=== PATIENT | female | born 2000 ===

== ENCOUNTER 2019-10-23 18:04 | Emergency (ER) | payer OTHER, SELFPAY ==
--- NOTE | 2019-10-23 18:11 | ED.GENADULT ---
HPI - General Adult General Chief complaint: Dental/Oral Stated complaint: lumps on tongue Time Seen by Provider: 10/23/19 18:21 Source: patient and RN notes reviewed Mode of arrival: ambulatory Limitations: no limitations History of Present Illness HPI narrative: This patient started noticing approximately 30 minutes ago that she had lumps on the back of her tongue. They are not painful. She not have any difficulty talking or swallowing. She is had no wheezing. She has not had any ear pain, no nasal drainage, no sore throat, no fever, no cough. There is been no nausea, no vomiting, no diarrhea. She has had no hematuria, no dysuria, no pyuria. She has had no rashes. She has not changed anything that she eats in her diet. She has not changed any agents that she puts on her skin for cleansing or bathing purposes. Related Data Allergies Allergy/AdvReac Type Severity Reaction Status Date / Time No Known Allergies Allergy Verified 10/23/19 18:22 Review of Systems Review of Systems: Narrative: CONSTITUTIONAL: Denies fever, chills, or sweats. Noncontributory except as pertains to the past medical history and history of present illness. EYES: Denies visual changes, redness, or discharge. ENT: Denies rhinorrhea, congestion, sore throat, or otalgia. CARDIOVASCULAR: Denies chest pain, palpitations, or edema. RESPIRATORY: Denies cough or dyspnea. GASTROINTESTINAL: Denies abdominal pain, nausea, vomiting, or diarrhea. GENITOURINARY: Denies dysuria or hematuria. SKIN: Denies rash or itching. MUSCULOSKELETAL: Denies back pain, joint pain, or myalgia. NEUROLOGIC: Denies headache, numbness, or weakness. PSYCHIATRIC: Denies anxiety or depression. PMFSH Comments At time of signature, I have reviewed and agree with nursing past medical, surgical, social, and family history.Please see nursing chart for further information. There is no relevant family history pertinent to the presenting complaint. Exam Narrative: Exam Narrative: GENERAL: Well-appearing, well-nourished, and in no acute distress. HEAD: Normocephalic, atraumatic. EYES: PERRLA and EOMI. EARS: TM's clear bilaterally and the canals are clear. NOSE: Nares clear, no rhinorrhea or epistaxis. THROAT:Mucous membranes moist.Oropharynx normal without erythema or exudates. The patient has enlarged papillae on the posterior aspect of the tongue. The tongue is not swollen. The uvula is not swollen or erythematous. The patient's throat appears normal. There are no lesions under the tongue. NECK: Supple. No adenopathy of the neck, supraclavicular, axillary, or inguinal areas. RESPIRATORY: No respiratory distress. Airway patent. Respirations non-labored. Clear to auscultation. No wheezes, no rales, no retractions, no use accessory muscle respirations. Patient's not cyanotic and not dyspneic. Pulse ox on room air is 100% and current temperature is 36.8 ?C. HEART: Regular rate and rhythm. No murmur heard. Normal peripheral pulses. ABDOMEN: Soft, nontender, nondistended, normal active bowel sounds.No masses. No rebound or guarding, No organomegaly. No CVA pain. No pain McBurney's point. Patient is a negative Meyers sign negative Rovsing sign. There are no pulsatile masses or audible bruits. EXTREMITIES: No clubbing/cyanosis/ edema. Normal strength & range of motion. SKIN: Warm, dry.Normal color. No rash or skin lesions. Patient well-nourished well-hydrated has moist mucous membranes and no tenting of the skin. NEURO: Alert and oriented. CN 2-12 grossly intact. No focal deficits. PSYCH: Normal mood and affect. Course Vital Signs Vital signs: Afebrile and the other vital signs are normal. Medical Decision Making MDM Narrative Medical decision making narrative: Enlarged papillae of the tongue. Discharge Plan Discharge Clinical Impression: Allergy Qualifiers: Encounter type: initial encounter Qualified Code(s): T78.40XA - Allergy, unspecified, initial encounter Patient Di
[2019-10-23 18:19] VITALS: BP 102/60; PULSE 71; RESP 14; TEMP 36.8; O2SAT 100
== END 2019-10-23 18:31 | disposition home or self-care (01) ==
PROVIDERS: Emergency Provider Family Medicine
DX: K14.9 Disease of tongue, unspecified (principal); T78.40XA Allergy, unspecified, initial encounter
CPT/HCPCS: 99213; G0463

== ENCOUNTER 2020-07-21 15:30 | Emergency (ER) | payer OTHER, SELFPAY ==
[2020-07-21 15:40] VITALS: BP 96/66; PULSE 84; RESP 18; TEMP 36.9; O2SAT 99
--- NOTE | 2020-07-21 15:43 | ED.ANIMALBIT ---
HPI - Animal Bite General Chief Complaint: Animal Bite Stated Complaint: cat bit on left middle finger Time Seen by Provider: 07/21/20 15:43 Source: patient and RN notes reviewed History of Present Illness HPI narrative: Patient is a 20-year-old female who presents the urgent care with complaints of a cat bite to the left middle finger. Patient states that she was trying to catch a stray cat and it bit her. Patient states that the cat was not foaming at the mouth and did appear to be well groomed with the exception of having no tags or collar. The cat was unable to be caught by bystanders or animal control. Patient is up-to-date on her tetanus. No other acute complaints. No acute distress noted. Patient aware of the plan of care. Some parts of this dictation were generated by voice recognition software and may contain typographical and/or grammatical inaccuracies. Related Data Allergies Allergy/AdvReac Type Severity Reaction Status Date / Time No Known Allergies Allergy Verified 10/23/19 18:22 Review of Systems Review of Systems: Narrative: CONSTITUTIONAL: Denies fever, chills, or sweats. EYES: Denies visual changes, redness, or discharge. ENT: Denies rhinorrhea, congestion, sore throat, or otalgia. CARDIOVASCULAR: Denies chest pain, palpitations, or edema. RESPIRATORY: Denies cough or dyspnea. GASTROINTESTINAL: Denies abdominal pain, nausea, vomiting, or diarrhea. GENITOURINARY: Denies dysuria or hematuria. SKIN: Reports of a cat bite to the left middle finger MUSCULOSKELETAL: Denies back pain, joint pain, or myalgia. NEUROLOGIC: Denies headache, numbness, or weakness. All other systems reviewed are negative, except as documented in HPI. [facility] Social History Social History Gender identity (if verbalized by the patient): Female Comments At the time of my signature, I reviewed and agree with the nursing past medical, surgical, social, and family history. There is no relevant family history pertinent to the patient complaint. Exam Narrative: Exam Narrative: GENERAL: This is a well-nourished, well-developed patient, in no apparent distress. HEAD: normocephalic, atraumatic. EYES: PERRL. Sclera clear/white. Vision is grossly intact. EARS: External ears normal NOSE: External nose normal with no obvious nasal discharge, nares without redness, no rhinorrhea. THROAT: Mucous membranes moist SKIN: 1 x 1 cm L-shaped cat bite to the dorsal aspect of the left middle finger. Warm, intact with no suspicious lesions or rash, good texture and turgor. NEURO: awake, alert, and oriented to person, place and time. There were no obvious focal neurologic abnormalities. EXTREMITIES: No clubbing, cyanosis, or edema. Course Vital Signs Vital signs: Vital Signs Temperature 98.5 F 07/21/20 15:40 Pulse Rate 84 07/21/20 15:40 Respiratory Rate 18 07/21/20 15:40 Blood Pressure 96/66 L 07/21/20 15:40 Pulse Oximetry 99 07/21/20 15:40 Temperature 98.5 F 07/21/20 15:51 Pulse Rate 84 07/21/20 15:51 Respiratory Rate 18 07/21/20 15:51 Blood Pressure 96/66 L 07/21/20 15:51 Pulse Oximetry 99 07/21/20 15:51 Reviewed MDM - Animal Bite MDM Narrative Medical decision making narrative: Advised the patient to follow-up with [facility] department or animal control regarding need for rabies vaccinations. Complete oral antibiotic regimen as prescribed. Make sure to eat and drink with the medication. Clean the wound with plain Dial soap and water and use Neosporin and a bandage to cover if necessary or at risk of being soiled. If you develop any increase in pain associated with swelling, redness, drainage from the area?go to the emergency room or follow-up with your PCP [facility]. Follow-up with your PCP within 2 to 5 days or for worsening symptoms or failure to improve. Differential Diagnosis Differential diagnosis: Likely bite by animal, cat bite, dog bite and rabies contact Critical Care Time Critical Care [facility]
[2020-07-21 15:51] VITALS: BP 96/66; PULSE 84; RESP 18; TEMP 36.9; O2SAT 99
== END 2020-07-21 16:01 | disposition home or self-care (01) ==
PROVIDERS: Emergency Provider Nurse Practitioner Family
DX: S61.253A Open bite of left middle finger without damage to nail, initial encounter (principal); W55.01XA Bitten by cat, initial encounter
CPT/HCPCS: 99213; G0463

== ENCOUNTER 2025-04-06 11:21 | Emergency (ER) | payer OTHER, SELFPAY ==
--- OUTSIDE RECORDS SUMMARY | 2025-04-06 11:23 | XMS_ITS | Referral Summary ---
Author Organization [facility] Address [address] [place] [address] Care Team Providers Care Evp Managing Director Name Role Phone Shasta Randle NP Primary Care Provider [phone] Allergies No known active allergies Medications emtricitabine-tenof ovir disoproxil fumerate (TRUVADA) 200-300 mg per tablet Take 1 tablet by mouth daily 30 tablet 2 Active dolutegravir (TIVICAY) 50 mg tabletIndications:P revention of HIV Infection after Exposure Take 1 tablet (50 mg total) by mouth daily 30 tablet 2 Active ondansetron ODT (ZOFRAN-ODT) 4 mg disintegrating tablet Take 1 tablet (4 mg total) by mouth every 8 (eight) hours as needed for nausea or vomiting 20 tablet 3 Active Active Problems No known active problems Social History Tobacco Use Types Packs/Day Years Used Date Smoking Tobacco: Never Personal Safety Answer Date Recorded Getting School Help Needed Not on file 10/15 Comments No Sex and Gender Information Value Date Recorded Sex Assigned at Not on file Legal Sex Female 8:32 PM JOURNALIST Gender Identity Not on file Sexual Orientation Not on file 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 on file Not on file Not on file Last Filed Vital Signs Vital Sign Reading Time Taken Comments Blood Pressure 91/63 09/22/2022 6:44 AM JOURNALIST Pulse 81 09/22/2022 6:44 AM JOURNALIST Temperature 37.6 C (99.6 F) 09/22/2022 1:45 AM JOURNALIST Respiratory Rate 18 09/22/2022 6:44 AM JOURNALIST Oxygen Saturation 97% 09/22/2022 6:44 AM JOURNALIST Inhaled Oxygen Concentration - - Weight 59 kg (130 lb) 09/22/2022 1:45 AM JOURNALIST Height 161.3 cm (5' 3.5) 06/23/2022 10:47 PM CD T Body Mass Index 22.67 06/23/2022 10:47 PM CDT Plan of Treatment Not on file Procedures Procedure Name Priority Date/Time Associated Diagnosis Comments HEPATITIS PANEL, ACUTE STAT 10/14/2021 2:52 PM JOURNALIST from Last 3 Months or Most Recently Relevant to Health Maintenance Results * Hepatitis panel, acute (10/14/2021 2:52 PM JOURNALIST) Hep A IgM Nonreactive Nonreactive [facility] ([place]) Comment: Interpretive Data: If Hep A IgM Ab is reported as Equivocal, a new sample should be drawn in two weeks for testing. Current interpretive data was last revised on 19. Testing performed by: [address] [id number] Hep B core IgM Nonreactive Nonreactive [facility] ([place]) Comment: Interpretive Data If HepB Core IgM Ab is reported as Equivocal, a new sample should be drawn in two weeks for testing. Current interpretive data was last revised on 19. Testing performed by: [address] [id number] Hep C Ab Nonreactive Nonreactive [facility] ([place]) Comment: Interpretive Data Nonreactive: Antibodies to HCV not detected. Does NOT exclude the possibility of recent exposure to HCV. Equivocal: Equivocal for HCV antibodies. Supplemental molecular testing will be automatically performed to determine infection status in accordance with current CDC screening recommendations. Reactive: Positive for HCV antibodies. This may represent current or past HCV infection. Supplemental molecular testing will be automatically performed to determine current infection status in accordance with current CDC screening recommendations. Interpretive data was last revised on 2019. Testing performed by: [address] [id number] HepBsAg Nonreactive Nonreactive [facility] ([place]) Comment:Testing performed by : [address] [address] Blood 10/14/2021 2:52 PM JOURNALIST 10/15/2021 9:30 AM JOURNALIST Madina Degroot NP LAB MICROBIOLOGY - GENERAL ORDERABLES Final Result [facility] ([place]) [facility] Department [place] [address] from Last 3 Months or Most Recently Relevant to Health Maintenance Insurance Care Teams Evp Managing Director Relationship Specialty Start Date End Date Shasta Randle NP [facility] - General 07/29/20
--- OUTSIDE RECORDS SUMMARY | 2025-04-06 11:23 | XMS_ITS | Clinical Summary ---
Author Organization [facility] Address [address] [place] [id number] Care Team Providers Care Silvering Applicator Name Role Phone Ananya Saleh MD Primary Care Provider Unavail able Social History Tobacco Use Types Packs/Day Years Used Date Smoking Tobacco: Never Assessed Comments Unknown Sex and Gender Information Value Date Recorded Sex Assigned at Not on file Legal Sex Female 7:31 PM CDT Gender Identity Not on file Sexual Orientation Not on file Plan of Treatment Health Maintenance Due Date Last Done Comments Cervical Cancer Screening Pa p Smear (Age 21 to 29) Every 3 Years 1998 Cervical Cancer Screening 1998 Annual Physical 2001 HPV Vaccines (1 - 3-dose series) 2013 Hepatitis C 2016 DTaP, Tdap and Td Vaccines ( 1 - Tdap) 2017 Hepatitis B Vaccines (1 of 3 - 19+ 3-dose series) 2017 COVID-19 Vaccine ( - 2023-2 5 season) 2024 Meningococcal B Vaccine Aged Out No l onger eligible based on patient's age to complete this topic Meningococcal Vaccine Aged Out No jessica chelita eligible based on patient's age to complete this topic Pneumococcal Vaccine: Pediat rics (0 to 5 Years) and At-Risk Patients (6 to 49 Years) Aged Out No longer eligible b ased on patient's age to complete this topic RSV Immunizations Under 20 Months Aged Out No longer eligible based on patient's age to complete this topic Care Teams Silvering Applicator Relationship Specialty Start Date End Date Ananya Saleh MD PCP - General 08/20/13
--- OUTSIDE RECORDS SUMMARY | 2025-04-06 11:23 | XMS_ITS | Data Portability ---
Author Organization [place] [facility] Address [address] [place] [address] Care Team Providers Care Mechanical Supervisor Name Role Phone NAIMA LANDRY Referring Provider Assessment Encounter Date Assessment Date Assessment LastModified by Organization Details LastModified Time 10/26/2024 10/26/2024 ASSESSMENT: 1. De Quervain's tenosynovitis, right wrist. PLAN: At this point, we will hold off on the injection until one of her off days, as she has patients to see today. She has already been prescribed meloxicam. We will show her the removable thumb spica braces available in the office. If she prefers, she can purchase one on [employer] or we can dispense her one from our office today. She will call to make an appointment for the injection on a Tuesday, as she is usually off on Fridays but has bigger procedures today. [email or web address] Not available 11/04/2024 17:13:56 11/09/2024 11/09/2024 ASSESSMENT: 1. De Quervain's tenosynovitis, right wrist PLAN: We will proceed with the injection for de Quervain's tenosynovitis today. The patient will continue using anti-inflammator ies and the brace as needed. A follow-up appointment is scheduled in approximately eight weeks to assess her progress. If symptoms persist, further management will be considered. [email or web address] Not available 11/09/2024 12:15:44 Plan of Treatment Reminders Order Date Submit Date Provider Last Modified By Organization Details Last Modified Time Details Appointments None record ed. Lab None record ed. Referral None record ed. Procedures None record ed. Surgeries None record ed. Imaging XR, wrist, 3 or more view 025 10/26/19 25 [email or web address] [facility], [address], [place], [address], 10:12:12 Medication Orders None record ed. Patient TargetsNo targets recorded. Patient Instructions Encounter Date Encounter Id Patient Instructions Last Modified By Organization Details Last Modified Time 11/09/2024 [id number] Injection Counseling: We discussed various methods of treatment for this diagnosis, including both non-surgical and surgical treatment options. The procedure was discussed in detail, including rationale for proceeding with the procedure, specifics of the technical aspects of the procedure, and the expected post procedure course including the possible need for activity modification, therapy, and duration of expected recovery. Risks to the injection include: pain, numbing, scar, infection, loss of motion, nerve or vascular injury, stiffness, skin discoloration, fat atrophy, or allergic reaction to medicine. The patient voiced understanding of the procedure and risks, and the decision for injection was made today. Not available 11/09/2024 12:31:15 Reason for Referral None Reported. Procedures Surgical History Date Name Laterality Status Provider Name and Address Organization Details Recorded Time 11/09/2024 .[id number] completed SHAUN RILEY, [address], [address] 11/11/2024 22:46:05 01/10/2023 Date of Last Pap Smear completed Not Available [employer] 10/25/2024 23:47:52 Imaging Results None recorded. Procedure Notes None recorded. Medical Equipment None Reported. Allergies No known drug allergies Medications Name Sig Start Date Stop Date Status Note LastModified by Organization Details LastModified Time meloxicam active Helps Not Available Not Janice ilable Not Available Vitals Date Recorded Body height Body mass index (BMI) Body weight Provider Name and Address Organization Details Last Updated DateTime 10/26/2024 162.56 cm 22.3 kg/m2 51229.01 g Ninoska yAers [place] [facility] 10/26/2024 09:58:23 Social History Question Answer Notes LastModified by Organizat ion Details LastModified Time Tobacco Smoking Status Not Available [facility] 11/08/2024 13:03:40 Which Of Your Hands Is Dominant? Right Information n ot available 10/26/2024 Employment Status Casework Manager Informa tion not available 10/26/2024 What Was The Date Of Your Most Recent Tobacco Screening? 11/08/2024 [email or web address] Information not available 11/08/2024 What Is Your Relationship Status? Information not available 10/26/2024 Sex: Unknown Functional Status Question Answer Note LastModified by Organizat ion Details LastModified Time Do you use any illicit or recreational drugs? No [email or web address] Information not available 11/08/2024 Do you or have you ever used any other forms of tobacco or nicotine? No [email or web address] Information not available 11/08/2024 What is your level of alcohol consumption? None [email or web address] Information not available 11/08/2024 Are you currently employed? 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 Occasional Information not available 10/26/2024 Mental Status None recorded. Family History Relationship Description Onset Age of this Age Resolved Age Notes LastModified by Organization Details LastModified Time Father No current problems or disability Not available 10/26 09:58:38 Mother No current problems or disability Not available 10/26 09:58:39 Medical History Condition Response Seizure Disorder N Gout N Thyroid Disease N Chronic Headache N Kidney Stones N MRSA N Hernia N Emphysema N Rosacea N Atrial Fib N Lung Disease N Depression N COPD N Pacemaker N Vertebral Compression Fractures N Abdominal problems N TIA N Anesthesia Complications N Muscle Disease N Raynaud's Syndrome N Congestive Heart Failure N Neurological Disorder N Parkinson's N Deep Vein Thrombosis N Obstructive Sleep Apnea N Alcoholism N Anxiety Disorder N Restless Leg Syndrome N Arthritis N Chronic Kidney Failure N Blood Clot N Cancer N Stroke N Crohn's Disease N Hypercholesterolemia N GERD N High Cholesterol N Liver Disease N Rheumatoid Arthritis N Headaches N Fibromyalgia N Irritable Bowel Syndrome N Autoimmune Disease N Kidney Disease N Heart Problems N Scoliosis N Colitis N Heart Attack/AK N Migraines N Osteoporosis/Osteopenia N Anemia N Multiple Sclerosis N Brain Injury N Ulcers N Wound Healing Issues N Diabetes N Addiction N Cataracts N Bleeding Disorder N Tuberculosis N Bowel problems N AIDS/HIV N BPH N Diverticulitis N Asthma N Lupus N Ankylosing Spondylitis N Peripheral Vascular Disease N Psoriasis N Epilepsy/Seizures N Mitral Valve Prolapse N Hepatitis N Neuropathy N Coronary artery disease N Heart Disease N Bronchitis N Pulmonary Embolism N Supraventricular Tachycardia N Hypertension N Gynecological History Statement/Question Response Date of Last Pap Smear 01/10/2023 Obstetrics History GPAL:G 0 P 0 0 0 0 Past Encounters Encounter ID Performer Location Encounter Start Date Encounter Closed Date Diagnosis/Indication Diagnosis SNOMED-CT Code Diagnosis ICD10 Code Diagnosis Note [id number] SHAUN RILEY DO [facility] [address] [facility] [place] [id number] 10/26/2024 09:14:02 10/26/2024 10:12:12 Pain of right wrist 5334257073 28811 M25.531 Tenosynovi tis of right radial styloid 4767386172 2706789 M65.4 [id number] SHAUN RILEY DO [facility] [address] [facility] [place] [address] 11/09/2024 11:29:05 11/09/2024 12:25:19 Tenosynovitis of right radial styloid 6842431730 5588405 M65.4 Health Concerns Section Related Observation LastModified by Organization Detai ls LastModified Time None Recorded Concern Status LastModified by Organization Details LastModified Time None Recorded Advance Directives Directive None Recorded Payers Insurance Date Sequence Insurance Name Policy Number Policy Lyle Covered Member ID Lyle Member ID Guarantor Name 11/27/2024 1 DAVID [id number] Yuriy Vences [id number] 1 Yuriy Vences Notes Date Note Type Note Provider Name and Address Organization Details Recorded Time 10/26/2024 text/html Wrist/HandReport ed by PatientHPIFor associated symptoms, patient reportsweaknessandca tching/locking. For hand dominance, patient reportsright. For location, patient reportsright. For quality, patient reportsaching,throbb ing,sharp, anddull(shooting, tenderness). For severity, patient reportspain level 4/10andworst pain 6/10. For duration, patient reports2 months. For timing, patient reportsacute. For context, patient reportscannot identify,overuse, andrepetitive motion. For alleviating factors, patient reportsrestandnsaids . For aggravating factors, patient reportscarrying,aviation medicine specialist ping,grasping,squeez ing, androm. For previous surgery, patient reportsnone. For prior imaging, patient reportsnone. For previous injections, patient reportsnone. For previous pt, patient reportsnone. For work related, patient reportsno. For working, patient reportsregular duty.ROS as noted in the HPI Yuriy Vences is a 24-year-old female who presents as a new patient for right wrist pain. 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 There is no specific mechanism of injury. She describes her pain as ranging from 4 out of 10 to 6 out of 10, with associated limited range of motion and stiffness. She has been taking meloxicam as needed. Dr. Camacho advised her not to wear a brace until she was evaluated. The pain affects her daily activities, including her work and caring for her [id number] child. She previously experienced a different type of pain in both wrists two years ago, which resolved after a period of rest. Currently, the pain is localized to her right wrist and is different from her previous symptoms. She has not had any injections for this condition. SHAUN RILEY, DO [address] [place] [address], [place], [address], [place] [facility] 11/04/2024 17:15:54 11/09/2024 text/html Wrist/HandReport ed by PatientHPIFor hand dominance, patient reportsright. For location, patient reportsright. For quality, patient reportsaching,throbb ing,sharp,dull, andimproving(shootin g, tenderness). For severity, patient reportspain level 3/10. For duration, patient reports2 months. For timing, patient reportsacute. For context, patient reportscannot identify,overuse, andrepetitive motion. For alleviating factors, patient reportsrestandnsaids . For aggravating factors, patient reportscarrying,aviation medicine specialist ping,grasping,squeez ing, androm. For previous surgery, patient reportsnone. For prior imaging, patient reportsx ray. For previous injections, patient reportsnone. For previous pt, patient reportsnone. For work related, patient reportsno. For working, patient reportsregular duty.ROS as noted in the HPI Yuriy Vences is a 24-year-old female who presents for an established visit. She is right arm dominant and works as a dentist. She has been experiencing de Quervain's tenosynovitis symptoms in her right wrist for the past two to three months. She reports that she has not needed meloxicam anymore and did not get the brace initially. However, she eventually obtained the brace, which has significantly helped her condition. Her range of motion has improved, and her pain level is currently 3 out of 10. She still experiences slight pain, which is persistent but manageable. She is considering an injection to alleviate the inflammation and pain further. SHAUN RILEY, DO [address] [facility], [place], [address], [place] [facility] 11/11/2024 22:47:49 OBGyn Episode No OBEpisode recorded.
--- OUTSIDE RECORDS SUMMARY | 2025-04-06 11:23 | XMS_ITS | Patient Health Record ---
Author Organization [facility] Address [address] [facility] [place] [address] Care Team Providers Care Geothermal Production Manager Name Role Phone TEJ FLANNERY Unavailable [phone] Reason For Referral No Information Medications Medication SIG (Take, Route, Frequency, Duration) Notes Start Date End Date Status Cephalexin 500 MG 1 capsule Orally Twi ce a day for 10 days 05/30/2024 Active Acetaminophen-Codeine 300-30 MG 1 tablet as needed Orally every 6 hrs for 5 days 06/06/2024 Active Encounters Encounter Location Date Provider Diagnosis [address] [address] 05/30/2024 TEJ FLANNERY Paronychia of great toe of right foot L03.031 ; Ingrown right greater toenail L60.0 and Pain of right great toe M79.[address] [address] 06/06/2024 TEJ FLANNERY Ingrowing nail L60.0 ; Paronychia of great toe of right foot L03.031 and Pain in right foot M79.[address] [address] 06/14/2024 TEJ FLANNERY Ingrown nail L60.0 a nd Pain of right great toe M79.[address] [address] 06/20/2024 TEJ FLANNERY Ingrown nail L60.0 a nd Pain of right great toe M79.[address] [address] 05/30/2024 TEJ FLANNERY [address] [address] 06/06/2024 TEJ FLANNERY Assessments Encounter Date Diagnosis (ICD Code) Assessment Notes Treatment Notes Treatment Clinical Notes Section Notes 05/30/2024 Paronychia of great toe of right foot (ICD-10 - L03.031) 06/06/2024 Ingrowing nail (ICD-10 - L60.0) 06/14/2024 Ingrown nail (ICD-10 - L60.0) 06/20/2024 Ingrown nail (ICD-10 - L60.0) 06/20/2024 Pain of right great toe (ICD-10 - M79.674) 06/14/2024 Pain of right great toe (ICD-10 - M79.674) 06/06/2024 Paronychia of great toe of right foot (ICD-10 - L03.031) 05/30/2024 Ingrown right greater toenail (ICD-10 - L60.0) Today we discussed treatment options and procedure types to correct deformity and infection. Pt chooses to have a permanent matrixectomy and agrees to follow preoperative protocol. This includes Keflex [id number] and warm water with 1/2 cup of vinegar soak daily. Pt will reappoint in one week for procedure and agrees to call if any additional complications arise. Schedule right hallux B/L margin matrixectomy in one week. 06/06/2024 Pain in right foot (ICD-10 - M79.671) 05/30/2024 Pain of right great toe (ICD-10 - M79.674) Plan Of Treatment No Information Insurance Providers Payer Name Payer Address Payer Phone Subscriber Number Group Number Insured Name Patient Relationship to Insured Coverage Start Date Coverage End Date Brooklynn BARBER [address] [place] [phone] [id number] Yuriy Vences Self - patient is the insured
--- OUTSIDE RECORDS SUMMARY | 2025-04-06 11:23 | XMS_ITS | Clinical Summary ---
Author Organization [facility] Address [address] [place] [address] Care Team Providers Care Pecan Gatherer Name Role Phone Shasta Randle NP Primary Care Provider [phone] Allergies No known active allergies Medications emtricitabine-tenof [...] Active Active Problems No known active problems Surgical History Surgery Date Site/Laterality Comments NO PAST SURGERIES Medical History Medical History Date Comments Known health problems: none Family History Medical History Relation Name Comments No Known Problems Father No Known Problems Mother Relation Name Status Comments Father Mother Social History Tobacco Use Types Packs/Day Years Used Date Smoking Tobacco: Never Personal Safety Answer Date Recorded Getting School Help Needed Not on file 10/15 Comments No Sex and Gender Information Value Date Recorded Sex Assigned at Not on file Legal Sex Female 8:32 PM [employer] Gender Identity Not on file Sexual Orientation Not on file 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 on file Not on file Not on file Obstetrics History Last Filed Vital Signs Vital Sign Reading Time Taken Comments Blood Pressure 91/63 09/22/2022 6:44 AM [employer] Pulse 81 09/22/2022 6:44 AM [employer] Temperature 37.6 C (99.6 F) 09/22/2022 1:45 AM [employer] Respiratory Rate 18 09/22/2022 6:44 AM [employer] Oxygen Saturation 97% 09/22/2022 6:44 AM [employer] Inhaled Oxygen Concentration - - Weight 59 kg (130 lb) 09/22/2022 1:45 AM [employer] Height 161.3 cm (5' 3.5) 06/23/2022 10:47 PM CD T Body Mass Index 22.67 06/23/2022 10:47 PM CDT Plan of Treatment Health Maintenance Due Date Last Done Comments Cervical Cancer Screening 1998 Depression Screening 1998 Regular Well Visit/Exam 18-64 2016 DTaP/Tdap/Td Vaccine (4 - Td or Tdap) 01/20/2022 01/21/2012, 06/18/2008, 01/22/1999 Covid-19 Vaccine ( season) 2024 07/21/2021, 12/01/2020, 10/21/2020 Influenza Vaccine (#1) 2025 , 07/08/2020, 07/06/2014, Additional history exists Hepatitis B Screening Completed 04/30/1999 Varicella Vaccines Completed 06/18/2008, 10/12/1999 HPV Vaccines Completed 05/29/2019, 01/10, 11/15/2018 Hepatitis C Screening Completed 10/14/2021 Pneumococcal vaccine <65 Aged Out No longer eligible based on patient's age to complete this topic Procedures Procedure Name Priority Date/Time Associated Diagnosis Comments HEPATITIS PANEL, ACUTE STAT 10/14/2021 2:52 PM [employer] from Last 3 Months or Most Recently Relevant to Health Maintenance Results * Hepatitis panel, acute (10/14/2021 2:52 PM [employer]) Hep A IgM Nonreactive Nonreactive [facility] ([facility]) Comment: Interpretive Data: If Hep A IgM Ab is reported as Equivocal, a new sample should be drawn in two weeks for testing. Current interpretive data was last revised on 19. Testing performed by: [facility], [address] [place] [address]., [id number] Hep B core IgM Nonreactive Nonreactive C WILBER RUSHING (BARON) Comment: Interpretive Data If HepB Core IgM Ab is reported as Equivocal, a new sample should be drawn in two weeks for testing. Current interpretive data was last revised on 19. Testing performed by: [facility], [address] [place] [address]., [id number] Hep C Ab Nonreactive Nonreactive [facility] ([facility]) Comment: Interpretive Data Nonreactive: Antibodies to [...] last revised on 2019. Testing performed by: [facility], [address] [place] [address]., [id number] HepBsAg Nonreactive Nonreactive [facility]USH[facility] ([facility]) Comment:Testing performed by : [address] [id number] Blood 10/14/2021 2:52 PM [employer] 10/15/2021 9:30 AM [employer] Madina Degroot NP LAB MICROBIOLOGY - GENERAL ORDERABLES Final Result [facility] ([facility]) [address] [facility] [place] [address] from Last 3 Months or Most Recently Relevant to Health Maintenance Insurance [facility] [place] [address] Care Teams Pecan Gatherer Relationship Specialty Start Date End Date Shasta Randle NP PCP - General 07/29/20
--- OUTSIDE RECORDS SUMMARY | 2025-04-06 11:23 | XMS_ITS | Data Portability ---
Author Organization [facility] Gordon Address [address] [place] [address] Care Team Providers Care Nurse Navigator Name Role Phone DUDLEYBEVERLEYLORETOCHARITO Primary Care Provider [phone] Assessment No assessment recorded. Plan of Treatment Reminders Order Date Submit Date Provider Last Modified By Organization Details Last Modified Time Details Appointments None recorded. Lab None recorded. Referral None recorded. Procedures None recorded. Surgeries None recorded. Imaging US, obstetric, 2nd or 3rd trimester 2022 023 [email or web address] [address], [address], [place], [address], 3 11:17:02 US, obstetric, nuchal translucenc y 2022 023 DOROTHY [address], [address], [place], [address], 3 20:34:50 Medication Orders None recorded. Patient TargetsNo targets recorded. Patient InstructionsNo instructions recorded. Reason for Referral None Reported. Results Created Date Observation Date Name Description Value Unit Range Abnormal Flag Note LastModifiedBy Organization Detail LastModifiedTime 02/19/2002/18/2023 HEPAT ITIS B SURFA CE ANTIG EN hepatitis B surface antigen Non-re active non-re active This assay was perfo rmed using [facility] [employer] ratio n reage nts and test kits. Value s obtai lalitha with other assay metho ds or kits canno t be used inter muller eably . Not Available [facility] (Lab) [address], [place], [address], 02/19/2023 23:23:04 02/19/20 23 02/18/2023 HEPAT ITIS C ANTIB CARON SCREE N, REFLE X TO CONFI RMATI ON hepatitis C antibody Non-re active non-re active Antib odies to HCV Not Detec hannah, does not exclu de the possi bilit y of expos ure to HCV. Not Available [facility] (Lab) [address], [place], [address], 02/19/2023 23:23:04 02/19/20 23 02/18/2023 HIV 1/2 ANTIG EN/AN TIBOD Y, REFLE X CONFI RMATI ON HIV antigen/anti body Nonrea ctive nonrea ctive HIV-1 antig en and HIV-1 /HIV- 2 antib odies were not detec hannah. No labor atory evide nce of HIV infec tion. Not Available [facility] (Lab) [address], [place], [address], 02/19/2023 23:23:04 02/19/20 23 02/18/2023 TSH, REFLE X FREE T4 TSH 2.04 uIU/m L 0.30-5 .33 Not Available [facility] (Lab) [address] [place], [address], 02/19/2023 23:23:05 02/19/20 23 02/18/2023 RUBEL LA IGG ANTIB CARON, QUANT rubella antibodies, IgG Reacti ve reacti ve Not Available [facility] (Lab) [address], [place], [address], 02/19/2023 23:23:05 02/19/20 23 02/18/2023 RUBEL LA IGG ANTIB CARON, QUANT rubella antibodies, IgG quant 19.1 IU/mL >=10 Non-r eacti ve (Non- Immun e) <10 IU/mL React kelvin (Immu ne) > or = 10 IU/mL Not Available [facility] (Lab) [address], [place], [address], 02/19/2023 23:23:05 02/19/20 23 02/18/2023 CBC W/DIF F WBC 7.3 10'3/ uL 3.6-10 .2 Not Available [facility] (Lab) [address], [place], [address], 02/19/2023 23:23:06 02/19/20 23 02/18/2023 CBC W/DIF F RBC 4.28 10'6/ uL (based on docume nted legal sex) 4.10-5 .30 Not Available [facility] (Lab) [address], [place], [address], 02/19/2023 23:23:06 02/19/20 23 02/18/2023 CBC W/DIF F HGB 12.6 g/dL (based on docume nted legal sex) 11.9-1 5.8 Not Available [facility] (Lab) [address], [place], [address], 02/19/2023 23:23:06 02/19/20 23 02/18/2023 CBC W/DIF F HCT 38.5 % (based on docume nted legal sex) 37.4-4 8.3 Not Available [facility] (Lab) [address], [place], [address], 02/19/2023 23:23:06 02/19/20 23 02/18/2023 CBC W/DIF F MCV 90.0 fL 82.0-9 9.0 Not Available [facility] (Lab) [address] [place], [address], 02/19/2023 23:23:06 02/19/20 23 02/18/2023 CBC W/DIF F MCH 29.4 pg 27.0-3 3.0 Not Available [facility] (Lab) [address] [place], [address], 02/19/2023 23:23:06 02/19/20 23 02/18/2023 CBC W/DIF F MCHC 32.7 g/dL 32.0-3 6.0 Not Available [facility] (Lab) [address], [place], [address], 02/19/2023 23:23:06 02/19/20 23 02/18/2023 CBC W/DIF F RDW 15.4 % 11.0-1 5.0 high Not Available [facility] (Lab) [address], [place], [address], 02/19/2023 23:23:06 02/19/20 23 02/18/2023 CBC W/DIF F plt 195 10'3/ uL 150-45 0 Not Available [facility] (Lab) [address], [place], [address], 02/19/2023 23:23:06 02/19/20 23 02/18/2023 CBC W/DIF F MPV 11.8 fL 9.8-12 .7 Not Available [facility] (Lab) [address], [place], [address], 02/19/2023 23:23:06 02/19/20 23 02/18/2023 CBC W/DIF F NRBC's 0.0 % 0 Not Available [facility] (Lab) [address], [place], [address], 02/19/2023 23:23:06 02/19/20 23 02/18/2023 CBC W/DIF F absolute NRBCs 0.0 10'3/ uL 0 Not Available [facility] (Lab) [address], [place], [address], 02/19/2023 23:23:06 02/19/20 23 02/18/2023 CBC W/DIF F neutrophils 75.9 % 37.0-7 2.0 high Not Available [facility] (Lab) [address], [place], [address], 02/19/2023 23:23:06 02/19/20 23 02/18/2023 CBC W/DIF F lymphocytes 14.9 % 16.0-4 8.0 low Not Available [facility] (Lab) [address], [place], [address], 02/19/2023 23:23:06 02/19/20 23 02/18/2023 CBC W/DIF F monocytes 8.2 % 4.0-14 .0 Not Available [facility] (Lab) [address], [place], [address], 02/19/2023 23:23:06 02/19/20 23 02/18/2023 CBC W/DIF F eosinophils 0.4 % 0.0-9. 0 Not Available [facility] (Lab) [address], [place], [address], 02/19/2023 23:23:06 02/19/20 23 02/18/2023 CBC W/DIF F basophils 0.3 % 0.0-2. 0 Not Available [facility] (Lab) [address], [place], [address], 02/19/2023 23:23:06 02/19/20 23 02/18/2023 CBC W/DIF F immature granulocytes 0.3 % no define d refere nce range Not Available [facility] (Lab) [address], [place], [address], 02/19/2023 23:23:06 02/19/20 23 02/18/2023 CBC W/DIF F absolute neutrophils 5.6 10'3/ uL 1.1-6. 0 Not Available [facility] (Lab) [address], [place], [address], 02/19/2023 23:23:06 02/19/20 23 02/18/2023 CBC W/DIF F absolute lymphocytes 1.1 10'3/ uL 0.7-3. 4 Not Available [facility] (Lab) [address], [place], [address], 02/19/2023 23:23:06 02/19/20 23 02/18/2023 CBC W/DIF F absolute monocytes 0.6 10'3/ uL 0.3-1. 0 Not Available [facility] (Lab) [address], [place], [address], 02/19/2023 23:23:06 02/19/20 23 02/18/2023 CBC W/DIF F absolute eosinophils 0.0 10'3/ uL 0.0-0. 6 Not Available [facility] (Lab) [address], [place], [address], 02/19/2023 23:23:06 02/19/20 23 02/18/2023 CBC W/DIF F absolute basophils 0.0 10'3/ uL 0.0-0. 1 Not Available [facility] (Lab) [address], [place], [address], 02/19/2023 23:23:06 02/19/20 23 02/18/2023 CBC W/DIF F absolute immature granulocytes 0.0 10'3/ uL 0.00-0 .10 2022 3:26 AM: P indic ates parti al resul ts on a panel have been relea sed. Addit ional resul ts will follo w. 2022 3:26 AM: This resul t has been final verif ied. No addit ional or muller ed resul ts are expec hannah. Not Available [facility] (Lab) [address], [place], [address], 02/19/2023 23:23:06 02/19/20 23 02/18/2023 TYPE/ RH/SC REEN ABO/Rh type O NEG Not Available [facility] (Lab) [address], [place], [address], 02/19/2023 23:23:06 02/19/20 23 02/18/2023 TYPE/ RH/SC REEN antibody screen NEG Not Available [facility] (Lab) [address], [place], [address], 02/19/2023 23:23:06 02/19/20 23 02/18/2023 TYPE/ RH/SC REEN exp date 2022 23:59 Not Available [facility] (Lab) [address], [place], [address], 02/19/2023 23:23:06 02/19/20 23 02/18/2023 HEMOG LOBIN A1C hemoglobin A1C 5.0 % 0-5.6 The Ameri can Diabe padmini Assoc iatio n recom mends that a prima ry goal of thera py shoul d be a HBA1C of < 7% and that physi cians shoul d reeva luate the treat ment regim en in patie nts with HBA1C value s consi stent ly > 8%. <5.7% Radha l 5.7 - 6.4% Incre ased risk for diabe padmini >=6.5 % Diagn ostic of diabe padmini <7.0% Goal of thera py >8.0% Actio n sugge sted Not Available [facility] (Lab) [address], [place], [address], 02/19/2023 23:23:06 02/19/20 23 02/18/2023 RPR SCREE N/REF DARSHAN TITER /FTA RPR screen Nonrea ctive nonrea ctive Not Available [facility] (Lab) [address], [place], [address], 02/19/2023 23:23:07 02/19/20 23 02/18/2023 LEAD, BLOOD (ADUL T/PED IATRI C) lead, whole blood <1.0 mcg/d L <3.5 See Note 1 A blood lead refer ence value of <5 mcg/d L shoul d apply to only [facility] resid ents per [facility]. Bao sis was perfo rmed by Jemma Nowak ed Plasm a Mass Spect romet ry (ICPM S) Note 1 This test was devel oped and its bao tical perfo rmanc e mateo cteri stics have been deter mined by [facility]. It has not been clear ed or appro seema by the FDA. This assay has been valid ated pursu ant to the CLIA regul ation s and is used for clini melissa purpo ses. Ethni city: Not Hispa jassi or Latin o Perfo rming Organ izati on Infor matio n: Site ID: [id number] Name: [facility] Addre ss: [address] [place] [address] Direc tor: Jeanette hardwick M.D. Not Available [facility] (Lab) [address], [place], [address], 02/25/2023 10:37:47 01/29/20 23 01/28/2023 US, obste tric, follo w-up No observ ation record ed. [email or web address] [facility], [place], [address], 02/18/2023 15:28:40 02/19/20 23 02/18/2023 US, obste tric, nucha l trans lucen cy No observ ation record ed. [email or web address] [address], [place], [address], 02/18/2023 15:50:17 02/19/20 23 02/18/2023 US, obste tric, nucha l trans lucen cy No observ ation record ed. [address], [facility], [place], [address], 02/19/2023 20:33:52 04/15/20 23 04/15/2023 US, obste tric, 2nd or 3rd trime ster No observ ation record ed. [email or web address] [address], [place], [address], 04/15/2023 13:00:15 04/15/20 23 04/15/2023 US, obste tric, 2nd or 3rd trime ster No observ ation record ed. DOROTHY [address], [place], [address], 04/24/2023 12:02:21 04/15/20 23 04/15/2023 US, obste tric, 2nd or 3rd trime ster No observ ation record ed. DOROTHY [address], [place], [address], 04/30/2023 10:11:52 Result Notes None recorded. Problems Name Problem SNOMED Code Status Onset Date Resolution Date Notes Provider Name and Address Organization Details Recorded Time [id number] Completed 023 04/19/2023 Lauren parikh [facility] 17:35:45 Problem Notes None recorded. Procedures Surgical History Date Name Laterality Status Provider Name and Address Organization Details Recorded Time 09/12/2019 Date of Last Pap Smear completed [facility] 01/28/2023 14:47:06 Imaging Results None recorded. Procedure Notes None recorded. Medical Equipment None Reported. Allergies No known drug allergies Medications Name Sig Start Date Stop Date Status Note LastModified by Organization Details LastModified Time ketoconazole 2 % shampoo 01/28 completed Not Available Not Available Not Available meloxicam 15 mg tablet TAKE 1 TABLET BY MOUTH EVERY DAY 01/28 completed Not Available Not Available Not Available clobetasol 0.05 % scalp solution 01/28 completed Not Available Not Available Not Available ondansetron 4 mg disintegratin g tablet 01/28 completed Not Available Not Available Not Available Vitals Date Recorded Body height Body mass index (BMI) Body weight Systolic And Diastolic Provider Name and Address Organization Details Last Updated DateTime 01/28/2023 160.02 cm 24.1 kg/m2 84558.56 g 101/65 mm[Hg] [facility] 01/28/2023 14:46:38 Date Recorded Body height Body mass index (BMI) Body weight Systolic And Diastolic Provider Name and Address Organization Details Last Updated DateTime 02/18/2023 160.02 cm 24.1 kg/m2 59478.562 32 g 100/64 mm[Hg] [facility] 02/18/2023 12:52:29 Date Recorded Body height Body mass index (BMI) Body weight Systolic And Diastolic Provider Name and Address Organization Details Last Updated DateTime 04/15/2023 160.02 cm 24.8 kg/m2 67449.931 8 g 96/63 mm[Hg] [facility] 04/15/2023 11:05:57 Social History Question Answer Notes LastModified by [email or web address] ion Details LastModified Time Tobacco Smoking Status Never Smoker [facility] 04/15/2023 09:56:53 Has Tobacco Cessation Counseling Been Provided? No [email or web address] Information not available 04/15/2023 Sex: Unknown Functional Status Question Answer Note LastModified by [email or web address] Details LastModified Time Do you use any illicit or recreational drugs? No Information not available 01/28/2023 Do you or have you ever used any other forms of tobacco or nicotine? No Information not available 04/15/2023 What is your level of alcohol consumption? None Information not available 01/28/2023 Mental Status None recorded. Family History Nothing Reported. Medical History Condition Response Allergies (Food, seasonal, environmental ) N Other N Breast Cancer N Drug/Latex Allergies/Reactions N Blood Transfusion N Dermatologic Disorders N Lung Disease N Defects or Inherited Disease N Breast Problem N Gestational Diabetes N Hematologic disorders N Anesthesia Complications N History of STI N Deep Vein Thrombosis N Polycystic ovary syndrome N Anxiety Disorder N Autoimmune disease N Arthritis N Infertility N Polyps N Acid Reflux (GERD) N History of abnormal pap N Cancer N Stroke N Varicosities N Neurologic/Epilepsy N Endometriosis N High Cholesterol N Headaches N Fibromyalgia N Kidney Disease N Heart Problems N Kidney or Bladder Problems N Thyroid Problems N GI Problems N Eating Disorder N Anemia N Art (IVF or FET) N Psychiatric Illness N Ovarian Cancer N Diabetes N Pulmonary (TB, Asthma) N Hepatitis/Liver Disease N No Past Medical History N Eczema N Urinary Tract Infection N Abuse/Domestic Violence N Asthma N Trauma/Violence N Depression/ depression N Heart Disease N Pre-Eclampsia N Hypertension N Osteoporosis N Thrombophilias N Gynecological History Statement/Question Response Age of first menstrual cycle 11 Date of Last Pap Smear 09/12/2019 Current Control Method Date of LMP 11/25/2022 Obstetrics History GPAL:G 1 P 0 0 0 0 Past Encounters Encounter ID Performer Location Encounter Start Date Encounter Closed Date Diagnosis/Indication Diagnosis SNOMED-CT Code Diagnosis ICD10 Code Diagnosis Note [id number] MD Lane [facility] [address] [address] 01/28/2023 13:33:59 01/28/2023 14:37:[id number] [place] [address] [place] [address] 01/28/2023 13:35:23 01/31/2023 14:55:28 test positive 026312041 Z32.01 Foreign [employer] 946147310 Z71.[id number] [place] [address] [place] [address] 02/18/2023 11:57:56 02/18/2023 12:49:04 screening 062829950 Z36.[id number] [place] [address] [place] [address] 02/18/2023 11:58:19 02/18/2023 13:41:18 Routine care 283803694 Z34.[id number] [place] [address] [place] [address] 04/15/2023 09:55:09 04/15/2023 10:51:08 screening for malformation 185898319 Z36.[id number] [place] [address] [place] [address] 04/15/2023 09:55:30 04/15/2023 11:39:30 Routine care 782768323 Z34.01 Health Concerns Section Related Observation LastModified by Organization Detai ls LastModified Time None Recorded Concern Status LastModified by Organization Details LastModified Time None Recorded Advance Directives Directive None Recorded Payers Insurance Date Sequence Insurance Name Policy Number Policy Lyle Covered Member ID Lyle Member ID Guarantor Name 04/18/2023 1 [facility] - DOS ON OR AFTER 21 (MEDICAID REPLACEMENT - HMO) Yuriy Vences [id number] Yuriy Riggssandi Notes Date Note Type Note Provider Name and Address Organization Details Recorded Time 01/28/2023 text/html Pt is a 22yo G1 who presents for missed menses and possible . LMP 11/25/22, menses regular. 9w1d GA by LMP. was planned. Just graduating from dental school and will be moving to [place] in Apr. Will be traveling much of the summer. She is feeling well so far. Last annual exam 2019 She denies domestic violence and she denies depression. Celsa Dimas MD [address], [place], [address], [facility] 01/28/2023 18:08:42 04/15/2023 text/html Generic HPI TemplateReported by Patient Celsa Dimas MD [address], [place], [address], [facility] 04/15/2023 11:27:32 OBGyn Episode Ob Episode Information Episode Created Date Number of Fetuses Patient Bloodtype Patient rh Status Prepregnancy Weight lbs Domestic Partner Domestic Partner Phone Father Name Machine Try Out Setter Status 02/19/20 23 1 O Negative 136 CLOSED Fetus Data First Name Last Name Admitted to NICU Weight (g) Sex Living Outcome Pediatric Complications Fetus ID Race Codes Race Delivery Type Slim Calculation Initial Slim Date Initial Exam Date Initial Exam Provider Initial Ultrasound Date Last Menstrual Period Date Ultra Sound Weeks Gestation 09/01/2023 02/18/2023 01/28/2023 11/25/2022 8 Eighteen To Twenty Week Slim Update Ultra Sound Date Fundal Height At Umbil Quickening Date Ultra Sound Latest Weeks Gestation Final Slim Confirmed By Final Slim Confirmed Date Final Slim Date Ultra Sound Latest Days Gestation 0 [email or web address] 02/18/2023 09/01/20 23 0 Pre-ang Flowsheet Flowsheet Date 02/18/2023 Verde Score Blood Edema Fundus Height Fundus Units Glucose Ketones Leukocytes Nitrite Labor Signs Protein Cervic Dilation Cervic Effacement Cervic Station neg none none trace Type Weight in lbs Pre/Post Dialysis Refused Weight 136.855263536520 BP Diastolic BP Location Tested BP Systolic BP Type 64 100 Fetus Heart Rate Present A 125 Fetus Movement A No Comments Yuriy is a 22yo G1 at 12.1 fo r care. See ob screen note. Will be missing next visit due to international travel. Then moving to [place] after anatomy US. Her history is noncontributory. Doing well, feeling good. US today normal NT. Labs and NIPT today. Flowsheet Date 04/15/2023 Verde Score Blood Edema Fundus Height Fundus Units Glucose Ketones Leukocytes Nitrite Labor Signs Protein Cervic Dilation Cervic Effacement Cervic Station Type Weight in lbs Pre/Post Dialysis Refused BP Diastolic BP Location Tested BP Systolic BP Type Fetus Heart Rate Present Fetus Movement Comments Flowsheet Date 04/15/2023 Verde Score Blood Edema Fundus Height Fundus Units Glucose Ketones Leukocytes Nitrite Labor Signs Protein Cervic Dilation Cervic Effacement Cervic Station neg none none trace Type Weight in lbs Pre/Post Dialysis Refused Weight 140.096232809830 BP Diastolic BP Location Tested BP Systolic BP Type 63 96 Fetus Heart Rate Present A 155 Fetus Movement A Yes Comments Travels went well. Last visi t here, moving to [place]. Baby boy Norman. Anatomy US today complete and wnl. EIF present, discussed, reassured. Will send records. Menstrual History Last Menstrual Date Menses Monthly On Bcp Conception Prior Menses Frequency Hcg Plus Date Menarche Onset Age 0311/25/2022 Genetic Screening And Infection History Question Response Note Mental Retardation/Autism false Patient's Age Will Be 35 Years Or Older At Estim ated Date of Delivery false Thalassemia (Senegalese, Swedish, Mediterranean, Or Background): MCV < 80 false Neural Tube Defect (Meningomyelocele, Spina Bifi da, Or Anencephaly) false Congenital Heart Defect false Down Syndrome false Enrrique-Sachs (eg, Moravian, Cajun, Kiswahili-[place]) f alse Lana Disease false Sickle Cell Disease Or Trait () false Hemophilia Or Other Blood Disorders false Muscular Dystrophy false Cystic Fibrosis false Marilee's Chorea false Intellectual Disability/Autism false If Yes, Was Person Tested For Fragile X? false Other Inherited Genetic Or Chromosomal Disorder false Maternal Metabolic Disorder (eg, Type 1 Diabetes , PKU) false Patient Or Baby's Father Had A Child With Defects Not Listed Above false Recurrent Loss, Or A Stillbirth false Medications (including Suppl ements, Vitamins, Herbs, OTC Drugs), Illicit/Recreational Drugs, Alcohol false If Yes, Agent(s) And Strength/Dosage false Any Other Genetic History false Live With Someone With TB Or Exposed To TB false Patient Or Partner Has History Of Genital Herpes false Rash Or Viral Illness Since Last Menstrual Perio d false History Of STD, Gonorrhea, Chlamydia, HPV, Syphi lis false Other Infection History false History of HIV false History of Hepatitis false Prior GBS-infected child false Hemoglobinopathy Or Carrier false Other Structural Defect false Recent Travel History Outside of Country false Delivery Information Delivery Date Delivery Type Labor Anesthesia Weeks Gestation Incision Type Labor Labor Length Hrs Delivered By Post Complications Tubal Sterilization Discharge Date Comments Discharge Information Feeding Method Contraceptive Method Maternal HG B and HCT Levels
--- OUTSIDE RECORDS SUMMARY | 2025-04-06 11:23 | XMS_ITS | Clinical Summary ---
Author Organization [facility] Address [address] [place] [address] Care Team Providers Care Crm Technical Lead Name Role Phone Unavailable Primary Care Provider Unavailabl e Source Comments [facility],non-owned Affiliates and Associated Physician Practices is amultiple site organization consisting of ambulatory clinics and hospital sitesin [place], [place], [place] and [place]. This disclosure is being madepursuant to the Care Everywhere program and may not contain all information available regarding this patient. Last updated 18.[facility] [place] Allergies No known active allergies Medications * Be aware that medications may not be up to date on this document. Alwaysverify current medications with the patient. ketoconazole (Nizoral) 2 % shampooIndicati ons:Other psoriasis Apply to wet hair, leave on for 3 minutes, then rinse; three times weekly. 30 days supply 120 mL 11 12/17/2022 Active clobetasol (Temovate) 0.05 % solutionIndicat ions:Other psoriasis Apply to affected areas on the scalp twice daily. 30 days supply. 50 mL 11 12/17/2022 Active meloxicam (Mobic) 15 MG tablet Take 1 (one) tablet by mouth once daily 30 tablet 4 12/22/2022 Active Active Problems No known active problems Social History Tobacco Use Types Packs/Day Years Used Date Smoking Tobacco: Never Smokeless Tobacco: Never Alcohol Use Standard Drinks/Week Comments Never 0 (1 standard drink = 0.6 oz pur e alcohol) PHQ-2 Answer Date Recorded PHQ2 TOTAL SCORE 0 12/22/2022 Comments No Sex and Gender Information Value Date Recorded Sex Assigned at Not on file Legal Sex Female 5:50 PM [employer] Gender Identity Not on file Sexual Orientation Not on file Last Filed Vital Signs Vital Sign Reading Time Taken Comments Blood Pressure 118/62 12/22/2022 2:13 PM CDT Pulse 73 12/22/2022 2:13 PM CDT Temperature 36.6 C (97.9 F) 12/22/2022 2:13 PM CDT Respiratory Rate - - Oxygen Saturation 99% 12/22/2022 2:13 PM CDT Inhaled Oxygen Concentration - - Weight 60.5 kg (133 lb 6.4 oz) 12/22/2022 2:13 P M CDT Height - - Body Mass Index - - Plan of Treatment Health Maintenance Due Date Last Done Comments HIV SCREENING 2013 HPV VACCINE (1 - 3-dose series) 2013 HEPATITIS C SCREENING 07/09/2016 DTAP/TDAP/TD VACCINES (1 - Tdap) 2017 HEPATITIS B VACCINE (1 of 3 - 19+ 3-dose series) 2017 PAP SMEAR 2019 COVID-19 VACCINE (1 - 2023-2 5 season) 2024 DEPRESSION SCREENING 09/12/2024 12/22/2022 INFLUENZA VACCINE (#1) 2025 ZOSTER VACCINE (1 of 2) 2048 HIB VACCINE Aged Out No longer eligi ble based on patient's age to complete this topic MENINGOCOCCAL (Group B) VACC INE SHARED DECISION-MAKING Aged Out No longer eligibl e based on patient's age to complete this topic MENINGOCOCCAL GROUPS A/C/Y/W VACCINE Aged Out No longer eligible b ased on patient's age to complete this topic PNEUMOCOCCAL VACCINE Aged Out No long er eligible based on patient's age to complete this [place] [address] [facility]
--- OUTSIDE RECORDS SUMMARY | 2025-04-06 11:23 | XMS_ITS | Data Portability ---
Author Organization LINCOLN Jena MARTINS Address [address] [facility] [place] [address] Care Team Providers Care Mental Health Case Manager Name Role Phone DALE LE Primary Care Provider GIGI WARREN Primary Care Provider Assessment No assessment recorded. Plan of Treatment Reminders Order Date Submit Date Provider Last Modified By Organization Details Last Modified Time Details Appointments None recorded. Lab C reactive protein, QN, serum or plasma 2022 023 [facility], [address], [address], [place], [address], 3 14:11:43 OTILIA (antinuclea r antibodies) screen, serum 2022 023 [facility], [address], [address], [place], [address], 3 14:11:41 rf (rheumatoid factor) + anti-ccp abs, serum 2022 023 [facility], [address], [address], [place], [address], 3 14:11:40 CMP, serum or plasma 2022 023 [facility], [address], [address], [place], [address], 3 20:08:42 CBC w/ auto diff 2022 023 DOROTHY DUNLAP, [address], [address], [place], [address], 3 20:08:43 lipid panel, serum 2022 023 DOROTHY DUNLAPJOON, [facility] [address], [address], [place], [address], 3 20:08:41 HbA1c (hemoglobin A1c), blood 2022 023 DOROTHY CROOK, [facility] [address], [address], [place], [address], 3 14:11:41 TSH, ultra-sensi tive, serum 2022 023 DOROTHY DUNLAP, [address] [place] [address], [address], [place], [address], 3 14:11:42 OTILIA (antinuclea r antibodies) screen, serum 2021 022 DOROTHY DUNLAP, [facility] [address], [address], [place], [address], 2 06:11:39 ESR (erythrocyt e sedimentati on rate), blood 2021 022 [facility], [address] [place], [place] [address], [address], [place], [address], 2 06:11:40 uric acid, serum or plasma 2021 022 DOROTHY DUNLAP, [address] [place], [place] [address], [address], [place], [address], 2 06:11:39 rf (rheumatoid factor) + anti-ccp abs, serum 2021 [facility], [address] [facility] [address], [address], [place], [address], 06:11:[address] referral - Please schedule with Claudia Waters. Thank you. [address] [facility], [address], [place], [address], 3 12:34:13 Procedures None recorded. Surgeries None recorded. Imaging None recorded. Medication Orders ketoconazol e 2 % shampoo 2022 023 [employer] #[id number], [address], [place], [place], [id number], 3 10:36:06 clobetasol 0.05 % scalp solution [id number], [address], [place], [place], [id number], 3 09:58:16 Patient TargetsNo targets recorded. Patient Instructions Encounter Date Encounter Id Patient Instructions Last Modified By Organization Details Last Modified Time 10/29/2021 [id number] thumb arthritis: exercises Not available 10/29/2021 10:51:27 carpal tunnel syndrome: exercises Not available 10/29/2021 10:51:27 09/29/2022 [id number] hand arthritis: exercises nsuthan Not available 09/29/2022 10:35:59 seborrheic dermatitis: care instructions nsuthan Not available 09/29/2022 10:35:58 f/u in 6month nsuthan Not available 10:36:05 Reason for Referral Gmat Instructor Referral for S eborrheic dermatitis of scalp Please schedule with Claudia Waters. Thank you. Referring Physician: Maged Warren, Internal Medicine, Encounter Date: 09/29/2022 Results Created Date Observation Date Name Description Value Unit Range Abnormal Flag Note LastModifiedBy Organization Detail LastModifiedTime 01/29/20 22 01/29/2022 RHEUM ATOID ARTHR ITIS PROFI LE rheumatoid factor (rf) <10.0 IU/mL <14.0 Not Available [facility]) [address] [place], [address], 01/30/2022 06:11:38 01/29/20 22 01/29/2022 RHEUM ATOID ARTHR ITIS PROFI LE anti-ccp Ab, IgG/IgA 4 units 0-19 Negat kip <20 Weak posit kip 20 - 39 Moder ate posit kip 40 - 59 Stron g posit kip >59 Not Available [facility] ([facility]) [address] [place], [address], 01/30/2022 06:11:38 01/29/20 22 01/29/2022 URIC ACID uric acid 4.1 mg/dL 2.6-6. 2 Thera peuti c targe t for gout patie nts: <6.0 Not Available [facility] ([facility]) [address] [place], [address], 01/30/2022 06:11:39 01/29/20 22 01/29/2022 OTILIA W/REF DARSHAN IF POSIT KIP OTILIA direct Negati ve negati ve Not Available [facility] ([facility]) [address] [place], [address], 01/30/2022 06:11:39 01/29/20 22 01/29/2022 SEDIM ENTAT ION RATE- WESTE RGREN sedimentatio n rate-westerg marcell 2 mm/HR 0-32 Not Available [facility] ([facility]) [address] [place], [address], 01/30/2022 06:11:40 09/29/19 23 09/29/2022 LIPID PANEL cholesterol, total 155.1 mg/dL 140.0- 200.0 Not Available [facility] [address] [place], [address], 09/29/2022 20:08:41 09/29/19 23 09/29/2022 LIPID PANEL triglyceride s 93 mg/dL <=150 Not Available [facility] [address] [place], [address], 09/29/2022 20:08:41 09/29/19 23 09/29/2022 LIPID PANEL HDL cholesterol 41.9 mg/dL 40.0-1 00.0 Not Available [facility] [address] [place] [address], [address], 09/29/2022 20:08:41 09/29/19 23 09/29/2022 LIPID PANEL VLDL cholesterol melissa 18.60 mg/dL 5.00-4 0.00 Not Available [facility] [address] [place] [address], [address], 09/29/2022 20:08:41 09/29/19 23 09/29/2022 LIPID PANEL LDL chol calc (rust) 95.8 Not Available [facility] [address] [place], [address], 09/29/2022 20:08:41 09/29/19 23 09/29/2022 COMP. METAB OLIC PANEL (14) glucose 80 mg/dL 65-99 ANION GP 12.0 mmol/ L N OSMOL 282.0 mOsM/ L N REFER ENCE RANGE : 275.0 -301. 0 Not Available [facility] [address] [place], [address], 09/29/2022 20:08:42 09/29/19 23 09/29/2022 COMP. METAB OLIC PANEL (14) BUN 12 mg/dL 8-26 Not Available [facility] [address] [place] [address], [address], 09/29/2022 20:08:42 09/29/19 23 09/29/2022 COMP. METAB OLIC PANEL (14) creatinine 0.57 mg/dL 0.50-1 .40 Not Available [facility] [address] [place], [address], 09/29/2022 20:08:42 09/29/19 23 09/29/2022 COMP. METAB OLIC PANEL (14) eGFR 130 mL/mi n/1.7 3 >=60 Not Available [facility] [address] [place] [address], [address], 09/29/2022 20:08:42 09/29/19 23 09/29/2022 COMP. METAB OLIC PANEL (14) BUN/creatini ne ratio 20.4 Not Available [facility] [address] [place] [address], [address], 09/29/2022 20:08:42 09/29/19 23 09/29/2022 COMP. METAB OLIC PANEL (14) sodium 142.0 mmol/ L 136.0- 144.0 Not Available [facility] [address] [place], [address], 09/29/2022 20:08:42 09/29/19 23 09/29/2022 COMP. METAB OLIC PANEL (14) potassium 4.3 mmol/ L 3.5-5. 3 Not Available [facility] [address] [place], [address], 09/29/2022 20:08:42 09/29/19 23 09/29/2022 COMP. METAB OLIC PANEL (14) chloride 104 mmol/ l 101-11 1 Not Available [facility] [address] [place] [address], [address], 09/29/2022 20:08:42 09/29/19 23 09/29/2022 COMP. METAB OLIC PANEL (14) carbon dioxide, total 29.6 mmol/ L 21.0-3 2.0 Not Available [facility] [address] [place], [address], 09/29/2022 20:08:42 09/29/19 23 09/29/2022 COMP. METAB OLIC PANEL (14) calcium 9.7 mg/dL 8.2-10 .0 Not Available [facility] [address] [place], [address], 09/29/2022 20:08:42 09/29/19 23 09/29/2022 COMP. METAB OLIC PANEL (14) protein, total 7.5 g/dL 6.7-8. 2 Not Available [facility] [address] [place], [address], 09/29/2022 20:08:42 09/29/19 23 09/29/2022 COMP. METAB OLIC PANEL (14) albumin 4.6 g/dL 3.5-5. 5 Not Available [facility] [address] [place], [address], 09/29/2022 20:08:42 09/29/19 23 09/29/2022 COMP. METAB OLIC PANEL (14) globulin, total 2.9 g/dL 1.5-4. 5 Not Available [facility] [address] [place], [address], 09/29/2022 20:08:42 09/29/19 23 09/29/2022 COMP. METAB OLIC PANEL (14) A/G ratio 1.6 Not Available [facility] Department [address] [place], [address], 09/29/2022 20:08:42 09/29/19 23 09/29/2022 COMP. METAB OLIC PANEL (14) bilirubin, total 0.6 mg/dL 0.0-1. 2 Not Available [facility] [address] [place], [address], 09/29/2022 20:08:42 09/29/19 23 09/29/2022 COMP. METAB OLIC PANEL (14) alkaline phosphatase 54.4 IU/L 42.0-1 21.0 Not Available [facility] [address] [place], [address], 09/29/2022 20:08:42 09/29/19 23 09/29/2022 COMP. METAB OLIC PANEL (14) AST (SGOT) 17.9 U/L 10.0-4 2.0 Not Available [facility] [address] [place], [address], 09/29/2022 20:08:42 09/29/19 23 09/29/2022 COMP. METAB OLIC PANEL (14) ALT (SGPT) 17.7 U/L 10.0-6 0.0 Not Available [facility] [address] [place], [address], 09/29/2022 20:08:42 09/29/19 23 09/29/2022 CBC WITH DIFFE RENTI AL/PL ATELE T WBC 5.0 K/uL 3.4-10 .8 Not Available [facility] [address] [place], [address], 09/29/2022 20:08:43 09/29/19 23 09/29/2022 CBC WITH DIFFE RENTI AL/PL ATELE T RBC 4.7 M/uL 4.2-5. 4 Not Available [facility] [address] [place], [address], 09/29/2022 20:08:43 09/29/19 23 09/29/2022 CBC WITH DIFFE RENTI AL/PL ATELE T hemoglobin 13.3 g/dL 11.5-1 5.5 Not Available [facility] [address] [place], [address], 09/29/2022 20:08:43 09/29/19 23 09/29/2022 CBC WITH DIFFE RENTI AL/PL ATELE T hematocrit 40.8 % 36.0-4 8.0 Not Available [facility] [address] [place], [address], 09/29/2022 20:08:43 09/29/19 23 09/29/2022 CBC WITH DIFFE RENTI AL/PL ATELE T MCV 88 fL 80-95 Not Available [facility] [address] [place], [address], 09/29/2022 20:08:43 09/29/19 23 09/29/2022 CBC WITH DIFFE RENTI AL/PL ATELE T MCH 29 pg 27-32 Not Available [facility] [address] [place], [address], 09/29/2022 20:08:43 09/29/19 23 09/29/2022 CBC WITH DIFFE RENTI AL/PL ATELE T MCHC 33 g/dL 32-36 Not Available [facility] [address] [place], [address], 09/29/2022 20:08:43 09/29/19 23 09/29/2022 CBC WITH DIFFE RENTI AL/PL ATELE T RDW 13.9 % 11.5-1 4.5 Not Available [facility] [address] [place], [address], 09/29/2022 20:08:43 09/29/19 23 09/29/2022 CBC WITH DIFFE RENTI AL/PL ATELE T platelets 267 K/uL 155-37 9 MPV 11.1 FL 8.9-1 2.7 N Not Available [facility] [address] [place], [address], 09/29/2022 20:08:43 09/29/19 23 09/29/2022 CBC WITH DIFFE RENTI AL/PL ATELE T neutrophils 57.9 % 40.0-7 4.0 Not Available [facility] [address] [place], [address], 09/29/2022 20:08:43 09/29/19 23 09/29/2022 CBC WITH DIFFE RENTI AL/PL ATELE T lymphs 29.7 % 14.0-4 6.0 Not Available [facility] [address] [place], [address], 09/29/2022 20:08:43 09/29/19 23 09/29/2022 CBC WITH DIFFE RENTI AL/PL ATELE T monocytes 9.4 % 4.0-12 .0 Not Available [facility] [address] [place], [address], 09/29/2022 20:08:43 09/29/19 23 09/29/2022 CBC WITH DIFFE RENTI AL/PL ATELE T eos 1 % 0-5 Not Available [facility] [address] [place], [address], 09/29/2022 20:08:43 09/29/19 23 09/29/2022 CBC WITH DIFFE RENTI AL/PL ATELE T basos 0.6 % 0.0-1. 0 Not Available [facility] [address] [place], [address], 09/29/2022 20:08:43 09/29/19 23 09/29/2022 CBC WITH DIFFE RENTI AL/PL ATELE T neutrophils (absolute) 2.9 K/uL 1.4-7. 0 Not Available [facility] [address] [place], [address], 09/29/2022 20:08:43 09/29/19 23 09/29/2022 CBC WITH DIFFE RENTI AL/PL ATELE T lymphs (absolute) 1.5 K/uL 0.7-3. 1 Not Available [facility] [address] [place], [address], 09/29/2022 20:08:43 09/29/19 23 09/29/2022 CBC WITH DIFFE RENTI AL/PL ATELE T monocytes(ab solute) 0.5 K/uL 0.1-0. 9 Not Available [facility] [address] [place], [address], 09/29/2022 20:08:43 09/29/19 23 09/29/2022 CBC WITH DIFFE RENTI AL/PL ATELE T eos (absolute) 0.1 K/uL 0.0-0. 4 Not Available [facility] [address] [place], [address], 09/29/2022 20:08:43 09/29/19 23 09/29/2022 CBC WITH DIFFE RENTI AL/PL ATELE T baso (absolute) 0.0 K/uL 0.0-0. 3 Not Available [facility] [address] [place], [address], 09/29/2022 20:08:43 09/29/19 23 09/29/2022 CBC WITH DIFFE RENTI AL/PL ATELE T immature granulocytes 1.4 % Not Available [facility] Department [address] [place], [address], 09/29/2022 20:08:43 09/29/19 23 09/29/2022 CBC WITH DIFFE RENTI AL/PL ATELE T immature grans (abs) 0.1 K/uL Not Available [facility] Department [address] [place], [address], 09/29/2022 20:08:43 09/29/19 23 09/29/2022 CBC WITH DIFFE RENTI AL/PL ATELE T NRBC 0 % Not Available [facility] [address] [place], [address], 09/29/2022 20:08:43 09/29/19 23 09/30/2022 RHEUM ATOID ARTHR ITIS PROFI LE rheumatoid factor (rf) <10.0 IU/mL <14.0 Not Available [facility] ([facility]) [address] [place], [address], 09/30/2022 14:11:40 09/29/19 23 09/30/2022 RHEUM ATOID ARTHR ITIS PROFI LE anti-ccp Ab, IgG/IgA 0 units 0-19 Negat kip <20 Weak posit kip 20 - 39 Moder ate posit kip 40 - 59 Stron g posit kip >59 Not Available [facility] ([facility]) [address] [place], [address], 09/30/2022 14:11:40 09/29/19 23 09/30/2022 OTILIA W/REF DARSHAN IF POSIT KIP OTILIA direct Negati ve negati ve Not Available [facility] ([facility]) [address] [facility], [place], [address], 09/30/2022 14:11:41 09/29/19 23 09/30/2022 HEMOG LOBIN A1C hemoglobin A1C 5.1 % 4.8-5. 6 Predi abete s: 5.7 - 6.4 Diabe padmini: >6.4 Glyce rubina contr ol for adult s with diabe padmini: <7.0 Not Available [facility] ([facility]) [address] [place], [address], 09/30/2022 14:11:41 09/29/19 23 09/30/2022 TSH TSH 2.170 uIU/m L 0.450- 4.500 Not Available [facility] ([facility]) [address] [place], [address], 09/30/2022 14:11:42 09/29/19 23 09/30/2022 C-CR CTIVE PROTE IN, QUANT C-reactive protein, quant 2 mg/L 0-10 Not Available [facility] ([facility]) [address] [facility] [place], [address], 09/30/2022 14:11:42 Result Notes None recorded. Problems Name Problem SNOMED Code Status Onset Date Resolution Date Notes Provider Name and Address Organization Details Recorded Time Pain of bilateral hands [id number] 9109 Active 2022 Gigi Warren MD Attn: Alexandre curiel,[address] [facility], [place], [address], [place] [facility] 3 14:25:20 Seborrheic dermatitis of scalp 499065887 Active 2022 Gigi Warren MD Attn: Accountjaleesa g,[address] [facility], [place], [address], [place] [facility] 3 14:25:29 Problem Notes None recorded. Procedures Surgical History Date Name Laterality Status Provider Name and Address Organization Details Recorded Time 2 IUD Removal completed ALE Markham Attn: Accounting,[address] [facility], [place], [address], [place] [facility] 03/10/2022 21:39:29 0 IUD Insertion completed ALE Markham Attn: Accounting,[address] [facility], [place], [address], [place] [facility] 12/19/2019 11:32:56 Imaging Results None recorded. Procedure Notes None recorded. Medical Equipment None Reported. Allergies No known drug allergies Medications Name Sig Start Date Stop Date Status Note LastModified by Organization Details LastModified Time ketoconazo le 2 % shampoo APPLY TO THE AFFECTED AREA(S), LATHER, LEAVE IN PLACE FOR 5 MINUTES, AND THEN RINSE OFF WITH WATER BY TOPICAL ROUTE twice a wk active Not Available Not Available No t Available azithromyc in 250 mg tablet 07/02 completed Not Available Not Available Not Available hydrocodon e 5 mg-acetami nophen 325 mg tablet TAKE 1-2 TABLETS BY MOUTH EVERY 4-6 HOURS NEEDED FOR PAIN MAX OF 8 IN 24 HOURS 07/02 completed Not Available Not Available Not Available meloxicam 15 mg tablet TAKE 1 TABLET BY MOUTH EVERY DAY active Not Available Not Available No t Available ondansetro n HCl 4 mg tablet 12/03 completed Not Available Not Available Not Available Zyrtec 10 mg tablet Take 1 tablet every day by oral route for 5 days. 12/03 completed Not Available Not Available Not Available norethindr one acetate 5 mg tablet TAKE 1 TABLET BY MOUTH THREE TIMES DAILY FOR 10 DAYS 09/29 completed not taking Not Available Not Available Not Available ibuprofen 600 mg tablet TAKE 1 TABLET BY MOUTH EVERY 6 HOURS NEEDED FOR PAIN 07/02 completed Not Available Not Available Not Available methylpred nisolone 4 mg tablets in a dose pack 12/03 completed Not Available Not Available Not Available clobetasol 0.05 % scalp solution APPLY TO THE AFFECTED SCALP AREA BY TOPICAL ROUTE 2 TIMES PER DAY IN THE MORNING AND EVENING for 5 days and then prn active Not Available Not Available No t Available ondansetro n 4 mg disintegra ting tablet 09/29 completed not taking Not Available Not Available Not Available fluticason e propionate 50 mcg/actuat ion nasal spray,susp ension [place] 2 sprays every day by intranas al route. 12/03 completed Not Available Not Available Not Available amoxicilli n 875 mg-potassi um clavulanat e 125 mg tablet TK 1 T PO Q 12 H 07/02 completed Not Available Not Available Not Available emtricitab ine 200 mg-tenofov ir disoproxil fumarate 300 mg tablet TAKE 1 TABLET BY MOUTH DAILY 09/29 completed not taking Not Available Not Available Not Available Tivicay 50 mg tablet 09/29 completed not taking Not Available Not Available Not Available Kyleena 17.5 mcg/24 hr (up to 5 years) 19.5 mg intrauteri ne device Take 1 device by intraute rine route. 03/10 completed Not Available Not Available Not Available COVID-19 test specimen collection TEST DIRECTED TODAY 09/29 completed Not Available Not Available Not Available Vitals Date Recorded Body height Body mass index (BMI) Body weight Heart rate Respiratory rate Body temperature Oxygen saturation Oxygen saturation in Arterial blood by Pulse oximetry Systolic And Diastolic Provider Name and Address Organization Details Last Updated DateTime 3 161.29 cm 23.2 kg/m2 42902.4 3 g 82 /min 12 /min 97.7 [degF] 98 % 98 % 106/70 mm[Hg] Deidre Kaba MA [facility] 3 10:07:47 Date Recorded Body height Body mass index (BMI) Body weight Body temperature Heart rate Oxygen saturation Oxygen saturation in Arterial blood by Pulse oximetry Systolic And Diastolic Provider Name and Address Organization Details Last Updated DateTime 2 161.29 cm 23.2 kg/m2 41830.7 9 g 97.8 [degF] 81 /min 98 % 98 % 98/64 mm[Hg] Keisha Bullock MA [facility] 2 10:30:53 Date Recorded Body height Body mass index (BMI) Body weight Body temperature Oxygen saturation Oxygen saturation in Arterial blood by Pulse oximetry Heart rate Systolic And Diastolic Provider Name and Address Organization Details Last Updated DateTime 2 161.29 cm 22.7 kg/m2 50890.0 1 g 97.1 [degF] 98 % 98 % 71 /min 96/62 mm[Hg] Tawanna Becker MA [facility] 2 12:43:07 Date Recorded Body height Body mass index (BMI) Body weight Body temperature Heart rate Oxygen saturation Oxygen saturation in Arterial blood by Pulse oximetry Systolic And Diastolic Provider Name and Address Organization Details Last Updated DateTime 2 161.29 cm 23.1 kg/m2 11033.9 9 g 97.4 [degF] 75 /min 98 % 98 % 110/64 mm[Hg] [facility] 2 15:59:32 Date Recorded Body height Body mass index (BMI) Body weight Body temperature Heart rate Oxygen saturation Oxygen saturation in Arterial blood by Pulse oximetry Systolic And Diastolic Provider Name and Address Organization Details Last Updated DateTime 2 161.29 cm 22.9 kg/m2 08315.4 g 97.4 [degF] 84 /min 98 % 98 % 104/60 mm[Hg] Minnie Valdez [facility] 2 09:49:05 Social History Question Answer Notes LastModified by Organizat ion Details LastModified Time Tobacco Smoking Status Never Smoker [facility] 11/29/2014 11:17:05 Are You Blind Or Do You Have Difficulty Seeing? No Information not available 09/29/2022 What Is Your Level Of Caffeine Consumption? Heavy Information not available 09/29/2022 In The 14 Days Before Symptom Onset, Have You Had Close Contact With A Laboratory-confir med COVID-19 While That Case Was Ill? No Information not available 09/29/2022 In The 14 Days Before Symptom Onset, Have You Had Close Contact With A Person Who Is Under Investigation For COVID-19 While That Person Was Ill? No Information not available 09/29/2022 Have You Been To An Area Known To Be High Risk For COVID-19? No Information not available 09/29/2022 Are You Deaf Or Do You Have Serious Difficulty Hearing? No Information not available 09/29/2022 What Type Of Diet Are You Following? REGULAR Information not available 09/29/2022 What Is The Highest Grade Or Level Of School You Have Completed Or The Highest Degree You Have Received? [id number] Currently In Dental School Information not available 09/29/2022 Are There Any Guns Present In Your Home? No Information not available 09/29/2022 What Was The Date Of Your Most Recent Tobacco Screening? 09/29/2022 Information not available 09/29/2022 What Is Your Relationship Status? Information not available 09/29/2022 Do You Use Your Seat Belt Or Car Seat Routinely? Yes Information not available 09/29/2022 Do You Have Smoke And Carbon Monoxide Detectors In Your Home? Yes Information not available 09/29/2022 Do You Use Sunscreen Routinely? No Information not available 09/29/2022 Has Tobacco Cessation Counseling Been Provided? No Information not available 09/29/2022 Sex: Female Functional Status Question Answer Note LastModified by Organizat ion Details LastModified Time Do you use any illicit or recreational drugs? No Information not available 09/29/2022 Do you or have you ever used any other forms of tobacco or nicotine? No Information not available 09/29/2022 What is your level of alcohol consumption? None [email or web address] Information not available 11/29/2014 Do you or have you ever used smokeless tobacco? Never used smokeless tobacco [email or web address] Information not available 12/18/2019 Are you currently employed? No Information not available 09/29/2022 Are you able to care for yourself independently? Yes Information not available 09/29/2022 Do you or have you ever used e-cigarettes or vape? Never used electronic cigarettes [email or web address] Information not available 10/09/2019 What is your exercise level? None Information not available 09/29/2022 Mental Status Question Answer Note LastModified by Organization D etails LastModified Time Do you feel stressed (tense, restless, nervous, or anxious, or unable to sleep at night)? [id number] Information not available 09/29/2022 Family History Relationship Description Onset Age of this Age Resolved Age Notes LastModified by Organization Details LastModified Time Father No current problems or disability [email or web address] Not available 04/2018 09:57:38 Mother No current problems or disability [email or web address] Not available 04/2018 09:57:38 Mother Hypertensive disorder Not available 2022 10:01:21 Sister Polycystic ovary Not available 2022 10:01:12 Medical History Condition Response Coronary Artery Disease N Other N High Blood Pressure N Atrial Fibrillation N Kidney or Bladder Problems N Thyroid Problems N GI Problems N Depression N COPD N Blood Clots N Skin Problems Y Anemia Y Heart Attack ([place]) N Anxiety Disorder N Diabetes N Muscle, Joint, or Bone Problems N Seizures/Epilepsy N Acid Reflux (GERD) N Cancer N Stroke N Asthma N Allergies N High Cholesterol N Hepatitis N Liver Disease N Headaches N Heart Failure N Osteoporosis N Gynecological HistoryNo gynecological history recorded. Obstetrics History GPAL:G 0 P 0 0 0 0 Immunizations Vaccine Type Date Status Note Provider Nam e and Address Organization Details Recorded Time COVID-19, mRNA, LNP-S, PF, 100 mcg/0.5mL dose or 50 mcg/0.25mL dose 1 completed Mary parikh, [place] - [facility] 03/25/2021 11:48:19 COVID-19, mRNA, LNP-S, PF, 100 mcg/0.5mL dose or 50 mcg/0.25mL dose 1 completed Mary Dee null, [place] [facility] 03/25/2021 11:48:58 Influenza, split virus, trivalent, preservative 4 completed Dale Le BILINGUAL EXECUTIVE ASSISTANT-C Attn: Accounting,[address] [facility], [place], [address], [place] [facility] 06/30/2022 10:10:45 Influenza, split virus, trivalent, PF 1 completed Dale Le BILINGUAL EXECUTIVE ASSISTANT-C Attn: Accounting,[address] [facility], [place], [address], [place] [facility] 06/30/2022 10:10:45 Influenza, split virus, trivalent, PF 2 completed Dale Le BILINGUAL EXECUTIVE ASSISTANT-C Attn: Accounting,[address] [facility], [place], [address], [place] [facility] 06/30/2022 10:10:45 Meningococcal MCV4O 2 completed Dale Le BILINGUAL EXECUTIVE ASSISTANT-C Attn: Accounting,[address] [facility], [place], [address], [place] [facility] 06/30/2022 10:10:45 Tdap 2 completed Dale Le BILINGUAL EXECUTIVE ASSISTANT-C Attn: Accounting,[address] [facility], [place], [address], [place] [facility] 06/30/2022 10:10:45 COVID-19, mRNA, LNP-S, PF, 100 mcg/0.5mL dose or 50 mcg/0.25mL dose 1 completed Dale Le BILINGUAL EXECUTIVE ASSISTANT-C Attn: Accounting,[address] [facility], [place], [address], [place] [facility] 06/30/2022 10:10:45 Influenza, split virus, trivalent, PF 3 completed Dale Le NP-C Attn: Accounting,[address] [facility], [place], [address], [place] [facility] 06/30/2022 10:10:45 meningococcal MCV4P 1 completed Dale Le BILINGUAL EXECUTIVE ASSISTANT-C Attn: Accounting,[address] [facility], [place], [address], [place] [facility] 06/30/2022 10:10:45 DTaP,IPV,Hib,HepB 9 completed Dale Le BILINGUAL EXECUTIVE ASSISTANT-C Attn: Accounting,[address] [facility], [place], [address], [place] [facility] 06/30/2022 10:10:45 DTaP-IPV 8 completed [facility] [place], [place] [facility] 05/01/2015 17:01:19 DTaP,IPV,Hib,HepB 9 completed Dale Le NP-C Attn: Accounting,[address] [facility], [place], [address], [place] [facility] 06/30/2022 10:10:45 AUiI-Qjp-OHW 9 completed [facility] [place] [facility] 05/01/2015 17:01:19 MMR 3 completed Drea [place] [facility] 05/01/2015 17:02:33 varicella 0 completed Drea [place] [facility] 05/01/2015 17:02:33 MMR 9 completed D[place] [facility] 05/01/2015 17:02:33 Hep B, adolescent or pediatric 9 completed Drea [place] [facility] 05/01/2015 17:02:33 varicella 8 completed D[place] [facility] 05/01/2015 17:02:33 Hep A, pediatric, unspecified formulation 8 completed Drea [place] [facility] 05/01/2015 17:05:03 meningococcal B, unspecified 2 completed [facility] null, [place] [facility] 05/01/2015 17:05:03 Hep A, pediatric, unspecified formulation 9 completed [facility] [place], [place] [facility] 05/01/2015 17:05:03 HPV9 9 completed Not Available [facility] 09/29/2019 02:51:07 HPV9 9 completed Not Available [facility] 09/29/2019 02:37:33 HPV9 9 completed Not Available [facility] 09/29/2019 02:48:27 Tdap 2 completed Aixa Beckett MD Attn: Accounting,[address] [place], [address], [facility] - [facility] 10/26/2015 15:17:23 Influenza, split virus, quadrivalent, preservative 0 [facility] [place] [facility] 09/10/2020 17:01:39 meningococcal MCV4P 5 completed Not Available [facility] 09/29/2019 02:30:16 Influenza, split virus, quadrivalent, PF 1 completed Keisha Bullock [place], [place] [facility] 07/02/2021 17:25:42 Influenza, split virus, quadrivalent, PF 2 completed Minnie Valdez [place] [facility] 07/15/2022 16:38:31 Past Encounters Encounter ID Performer Location Encounter Start Date Encounter Closed Date Diagnosis/Indication Diagnosis SNOMED-CT Code Diagnosis ICD10 Code Diagnosis Note [id number] MD [facility] ([address] [address]) [address] [place] [address] 11/29/2014 11:00:30 11/29/2014 11:55:04 Right lower quadrant pain [id number] 2 days hx of RLQ pain, now improved. Patient is tolerating PO, has an appetite, no f/c, able to hop on R leg. PE not concerning for appendicit is, though will get CBC to look for WBC count - urine preg negative r/o ectopic. Obtain UA and urine GC r/o UTI and STD/PID - DDx. ovarian cyst vs, menstrual cramps, vs UTI vs gas vs. acute colitis vs IBS vs other - D/w parent and patient when to seek medical attention or go to ER should any alarming signs arise. patient and parents demonstrat ed understand ing and agreed with the plan [id number] Ananya Saleh MD [facility] ([facility] [address]) [address] [place] [address] 04/23/2015 13:52:58 04/23/2015 15:09:50 Active or passive immunization [id number] ALE [facility] [place] ([facility] [address]) [address] [place] [address] 09/07/2017 09:52:13 09/14/2017 11:44:00 Eruption 260101368 R21 -Will send for RAST and food allergy panel. Will contact once results are available. May need nuclear auxiliary operator referral based on results.-5 days of zyrtec samples given to take daily at bedtime.-R eport to ER for throat swelling or trouble breathing [id number] [facility] [place] [facility] ([address]) [address] [place] [address] 01/17/2018 09:35:00 01/20/2018 11:57:29 Adult health examination 084129656 Z00.00 -Requestin g labs-Radha l BMI-Immuni zations UTD-Discus sed nutrition and exercise Otalgia 80237284 H92.01 -Suspect secondary to seasonal allergies, will start steroid nasal spray. RTC if not better in 5-7 days. [id number] [facility] [place] [facility] ([address]) [address] [place] [address] 11/15/2018 09:08:58 11/16/2018 08:12:23 History and physical examination, [facility] 32429947 Z02.0 -hx of positive ppd, check quant gold-immun izations UTD, wants HPV series.-fo rm completed and given back to student Irregular periods 774445 07 N92.6 -check TSH Active or passive immunization 003213078 Z23 Depression screening 171 077217 Z13.31 -negative screening [id number] Dale Le NP-C [facility] [facility] ([address]) [address] [facility] [place] [address] 01/22/2019 12:38:54 01/22/2019 12:53:13 Active or passive immunization 359288481 Z23 [id number] Dale Le NP-C [facility] [facility] ([address]) [address] [facility] [place] [address] 05/29/2019 16:04:13 05/31/2019 10:50:48 Active or passive immunization 960019400 Z23 [id number] Dale Le NP-Cary [facility] ([address]) [address] [place] [address] 10/09/2019 10:06:21 10/10/2019 09:11:22 Contraception care 070521290 Z30.40 -provided control choices handout and discussed each option, r/b/a-she would like to think about what method she wants and then will contact our office Depression screening 171 791683 Z13.31 -negative screening [id number] A[facility] [place] [facility] ([address]) [address] [place] [address] 12/04/2019 10:06:22 12/05/2019 09:08:23 Adult health examination 609608421 Z00.00 -Requestin g labs-Immun izations UTD -Discussed nutrition and exercise-w ill get PAP with IUD placement Anemia 592697297 D64.9 -takes a multivitam in with iron [id number] MD Rene [facility] ([address]) [address] [facility] [place] [address] 12/18/2019 15:33:02 12/19/2019 12:36:20 Gynecologic examination 17950793 Z01.419 -PAP collected and sent Contracept ion care management 556183952 Z30.9 -Kyleena placed-OTC ibuprofen as needed for cramping-C an f/u in 1 mo with BREANA Le for string check if needed [id number] Dale Holthaus, BILINGUAL EXECUTIVE ASSISTANT-C [facility] ([address]) [address] [place] [address] 05/21/2020 11:06:21 05/22/2020 08:40:41 Fatigue 26269301 R53.83 -check labs Chronic constipation 236 655617 K59.09 -on high fiber diet and drinking more water-can try stool softener if not getting better with diet changes [id number] [facility] [place] [facility] ([address]) [address] [place] [address] 07/08/2020 16:56:35 07/09/2020 21:42:40 Pain in pelvis 79459167 R10.2 -strings located during exam-no pain with manual exam-diff includes tilted device vs ovarian etiology, send for pelvic US Active or passive immunization 258830802 Z23 [id number] [facility] ([address]) [address] [place] [address] 07/02/2021 13:58:48 07/06/2021 17:20:33 Adult health examination 255176783 Z00.00 -PAP UTD, repeat 2022-immun izations updated today-bonnieg ht and BP appropriat e Administra tion of influenza vaccine 39080027 Z23 [id number] [facility] [facility] ([address]) [address] [place] [address] 10/29/2021 10:12:07 10/30/2021 09:28:39 Pain in right thumb 4377931381 488095 M79.644 -diff includes tendonitis vs carpal tunnel syndrome-c an get OTC carpal tunnel brace to wear at night-home exercises as provided-h eat and NSAIDS for 3-5 days for pain-f/u in 4 weeks if no change. Can consider EMG and referral to hand surgeon [id number] [facility] [place] [facility] ([address]) [address] [place] [address] 01/28/2022 12:29:36 01/29/2022 12:57:00 Pain of multiple joints 31186325 M25.50 -check labs to r/o autoimmune etiology-d iscussed may be osteoarthr itis and may benefit from OT-f/u based on labs [id number] [facility] ([address]) [address] [place] [address] 03/10/2022 15:50:52 03/11/2022 10:37:18 Contraception care 713998410 Z30.40 -IUD removed in office with no complicati ons-f/u as needed [id number] [facility] [place] [facility] ([address]) [address] [place] [address] 06/30/2022 09:42:27 07/01/2022 11:24:44 Psoriasis of scalp 980303541 L40.9 -clobetaso l scalp solution BID x5 days and then PRN-f/u if no resolution s of symptoms Administra tion of influenza vaccine 24363307 Z23 [id number] MD Mesha Walter (Adult Med) [address] [place] [address] 09/29/2022 09:42:37 09/30/2022 16:31:44 Seborrheic dermatitis of scalp 435129149 L21.0 vs scalp psoriasis- pt is using clobetasol topical - wants to see derm Adult heal th examination 100570820 Z00.00 healthy diet and exercise discussed with pt Pain of bi lateral hands 7825394559 0026542 M79.641 M79.642 possibly due to overuse - exercise Health Concerns Section Related Observation LastModified by Organization Detai ls LastModified Time None Recorded Concern Status LastModified by Organization Details LastModified Time None Recorded Advance Directives Directive None Recorded Payers Insurance Date Sequence Insurance Name Policy Number Policy Lyle Covered Member ID Lyle Member ID Guarantor Name 07/06/2021 1 [facility] PRIOR TO 03/12/2021 (MEDICAID REPLACEMENT - HMO) Yuriy Vences [id number] Yuriy Vencse 12/27/2024 1 [facility] ON OR AFTER 03/12/21 (MEDICAID REPLACEMENT - HMO) Yuriy Vences [id number] Yuriy Vences Notes Date Note Type Note Provider Name and Address Organization Details Recorded Time 10/29/2021 text/html Hand/FingersRepo rted by PatientHPIFor hand dominance, patient reportsright. For location, patient reportsrightandulnar . For duration, patient reports2 months(worsening over the last few weeks). For timing, patient reportsacute. For context, patient reportscannot identify. For alleviating factors, patient reportsnothing helps(but has not tried anything to help the pain). For quality, (quick shooting nerve pain). For associated symptoms, (stiffness under thumb, not getting triggering of the digit but sometimes feels like she has some limited rom).ROS as noted in the HPI ALE Markham Attn: [address] [place], [address], [facility] 10/29/2021 22:29:33 01/28/2022 text/html ROS as noted in the HPI Here today with continued complaints of right hand pain. States it feels like an internal bone ache. Her xray was clear, her nerve condution was negative. The hand specialist recommended she see Rheum. Having some symptoms in the left hand as well. No relief with tylenol and motrin. Has some stiffness in the right middle finger, first finger and thumb ALE Markham Attn: [address] [place], [address], [facility] - [facility] 01/28/2022 13:05:50 03/10/2022 text/html ROS as noted in the HPI Yuriy is here requesting IUD removal. She desires in the near future. She is taking a pre- vitamin. ALE Markham Attn: Accounting,[address] [place], [address], [facility] - [facility] 03/10/2022 21:41:05 06/30/2022 text/html Yuriy Vences is here today for a chief complaint of an itchy scalp. She states that it started in September and has since spread starting in March. She noticed skin flakes on her scalp along with itching but has not noticed hair loss. She states it could have started when she would wash her hair and tie it up and sleep in her damp hair. She stopped doing that but her symptoms have not improved. She has tried oil, dandruff shampoo and home remedies with no relief. There is pain, tenderness and soreness due to her scratching and picking at her scalp. She states she had RSV last week and her symptoms have resolved since. ALE Markham Attn: Accounting,[address] [facility], [place], [address], [facility] 06/30/2022 10:52:22 09/29/2022 text/html General Rash/Ski n LesionReported by PatientHPIFor quality, patient reportsitchely hensley. For location, patient reportsscalp. For severity, patient reportsmoderate. For duration, patient reportshas noted for >3 months (1 year). For onset/timing, patient reportsrecurring. For associated symptoms, patient reportsno fever. Hand/FingersReported by PatientHPIFor hand dominance, patient reportsright. For location, patient reportsbilateral. For quality, patient reportsaching. For severity, patient reportsmoderate. For timing, patient reportsgradual. 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 For alleviating factors, patient reportsrest. For aggravating factors, patient reportsrom. For associated symptoms, patient reportsno swellingandno redness. New pt is here to establish care Gigi Warren MD Attn: Accounting,[address] [facility], [place], [address], [facility] 09/29/2022 14:26:22 OBGyn Episode No OBEpisode recorded.
--- OUTSIDE RECORDS SUMMARY | 2025-04-06 11:23 | XMS_ITS | Data Portability ---
Author Organization [facility] Address [address] [place] [address] Care Team Providers Care Discharge Planner Name Role Phone PATEL - [facility] GYNECOLOGY & INFERT ILITY OTHER Assessment No assessment recorded. Plan of Treatment Reminders Order Date Submit Date Provider Last Modified By Organization Details Last Modified Time Details Appointments None recorded. Lab vitamin D, 25-hydroxy, total, serum 2023 024 [facility] - [address] Jonathan Mackenzie, [place], [address], 4 08:59:46 HbA1c (hemoglobin A1c), blood 2023 024 [facility] - [address] Jonathan Mackenzie, [place], [address], 4 08:59:46 CMP, serum or plasma 2023 024 [facility] - [address] Jonathan Mackenzie, [place], [address], 4 08:59:45 CBC w/ auto diff 2023 024 [facility] [address] Jonathan Mackenzie, [place], [address], 4 08:59:47 TSH, serum, reflex free T4 2023 024 [facility] - [facility], [address] [place] [address] Jonathan Mackenzie, [place], [address], 4 08:59:46 lipid panel, serum 2023 024 [facility] - [address] Jonathan Mackenzie, [place], [address], 4 08:59:45 Referral physical therapist referral 2023 024 [id number] [facility], [address] , Jonathan Frederick, [place], [address], 4 11:57:09 warpman referral 2023 024 [id number] Tiburcio Kennedy DPJohanny, [address] [place] [address] , [place], [address], 4 15:15:29 Procedures None recorded. Surgeries None recorded. Imaging None recorded. Medication Orders None recorded. Patient TargetsNo targets recorded. Patient InstructionsNo instructions recorded. Reason for Referral Physical Therapist Referral for Neck pain Referring Physician: Richard Kenny, Family Medicine, Encounter Date: 11/24/2023 Imaging Aide Referral for Pain of toe of left foot Referring Physician: Richard Kenny Family Medicine, Encounter Date: 11/24/2023 Results Created Date Observation Date Name Description Value Unit Range Abnormal Flag Note LastModifiedBy Organization Detail LastModifiedTime 11/24/1911/25/2023 COMPR EHENS KIP METAB OLIC PANEL + E-GFR glucose 82 mg/dL 70-99 Not Available [facility] - Main Lab (Blood Not Drawn At This Location) Visit [employer] [facility] [place], [place], [address], 11/25/2023 08:59:44 11/24/1903 1211/25/2023 COMPR EHENS KIP METAB OLIC PANEL + E-GFR BUN 10 mg/dL 6-20 Not Available [facility] Main Lab (Blood Not Drawn At This Location) Visit [employer] [place], [address], 11/25/2023 08:59:44 11/24/19 24 11/25/2023 COMPR EHENS KIP METAB OLIC PANEL + E-GFR creatinine 0.67 mg/dL 0.60-1 .30 Not Available [facility] Main Lab (Blood Not Drawn At This Location) Visit [employer] [place], [address], 11/25/2023 08:59:44 11/24/19 24 11/25/2023 COMPR EHENS KIP METAB OLIC PANEL + E-GFR eGFR (2020 CKD-epi) 124 mL/mi n/1.7 3 >60 Not Available [facility] Main Lab (Blood Not Drawn At This Location) Visit [employer] [place], [address], 11/25/2023 08:59:44 11/24/19 24 11/25/2023 COMPR EHENS KIP METAB OLIC PANEL + E-GFR calc BUN/creat 15 ratio 6-28 Not Available [facility] - Main Lab (Blood Not Drawn At This Location) Visit [employer] [place], [address], 11/25/2023 08:59:44 11/24/19 24 11/25/2023 COMPR EHENS KIP METAB OLIC PANEL + E-GFR sodium 140 mEq/L 133-14 6 Not Available [facility] Main Lab (Blood Not Drawn At This Location) Visit [employer] [place], [address], 11/25/2023 08:59:44 11/24/19 24 11/25/2023 COMPR EHENS KIP METAB OLIC PANEL + E-GFR potassium 4.5 mEq/L 3.5-5. 4 Not Available [facility] Main Lab (Blood Not Drawn At This Location) Visit [employer] [place], [address], 11/25/2023 08:59:44 11/24/19 24 11/25/2023 COMPR EHENS KIP METAB OLIC PANEL + E-GFR chloride 102 mEq/L 95-107 Not Available [facility] Main Lab (Blood Not Drawn At This Location) Visit [employer] [place], [address], 11/25/2023 08:59:44 11/24/19 24 11/25/2023 COMPR EHENS KIP METAB OLIC PANEL + E-GFR carbon dioxide 24 mEq/L 19-31 Not Available [facility] Main Lab (Blood Not Drawn At This Location) Visit [employer] [place], [address], 11/25/2023 08:59:44 11/24/19 24 11/25/2023 COMPR EHENS KIP METAB OLIC PANEL + E-GFR calcium 9.9 mg/dL 8.5-10 .5 Not Available [facility] Main Lab (Blood Not Drawn At This Location) Visit [employer] [place], [address], 11/25/2023 08:59:44 11/24/19 24 11/25/2023 COMPR EHENS KIP METAB OLIC PANEL + E-GFR protein, total 7.3 g/dL 6.1-8. 3 Not Available [facility] Main Lab (Blood Not Drawn At This Location) Visit [employer] For Location Nearest [facility] [place], [address], 11/25/2023 08:59:44 11/24/19 24 11/25/2023 COMPR EHENS KIP METAB OLIC PANEL + E-GFR albumin 4.7 g/dL 3.5-5. 2 Not Available [facility] - Main Lab (Blood Not Drawn At This Location) Visit [employer] For Location Nearest [facility] [place], [address], 11/25/2023 08:59:44 11/24/19 24 11/25/2023 COMPR EHENS KIP METAB OLIC PANEL + E-GFR calc globulin 2.6 g/dL 1.9-3. 7 Not Available [facility] Main Lab (Blood Not Drawn At This Location) Visit [employer] [place], [address], 11/25/2023 08:59:44 11/24/19 24 11/25/2023 COMPR EHENS KIP METAB OLIC PANEL + E-GFR calc A/G ratio 1.8 ratio 1.0-2. 6 Not Available [facility] Main Lab (Blood Not Drawn At This Location) Visit [employer] [place], [address], 11/25/2023 08:59:44 11/24/19 24 11/25/2023 COMPR EHENS KIP METAB OLIC PANEL + E-GFR bilirubin, total 0.5 mg/dL <=1.2 Not Available [facility] Main Lab (Blood Not Drawn At This Location) Visit [employer] [place], [address], 11/25/2023 08:59:44 11/24/1911/25/2023 COMPR EHENS KIP METAB OLIC PANEL + E-GFR alkaline phosphatase 93 U/L 40-112 Not Available [facility] - Main Lab (Blood Not Drawn At This Location) Visit [employer] [place], [address], 11/25/2023 08:59:44 11/24/1911/25/2023 COMPR EHENS KIP METAB OLIC PANEL + E-GFR AST 16 U/L 9-40 Not Available [facility] Main Lab (Blood Not Drawn At This Location) Visit [employer] [place], [address], 11/25/2023 08:59:44 11/24/19 24 11/25/2023 COMPR EHENS KIP METAB OLIC PANEL + E-GFR ALT 12 U/L 5-40 Testi ng Perfo rmed At: [facility] [address] [place] [address] Labor atory [facility] tor: Devante luna M.D. TRAM ferrell [id number] [place]. [id number] Not Available [facility] Main Lab (Blood Not Drawn At This Location) Visit [employer] [place], [address], 11/25/2023 08:59:44 11/24/19 24 11/25/2023 LIPID PANEL cholesterol 153 mg/dL <200 Not Available [facility] Main Lab (Blood Not Drawn At This Location) Visit [employer] [place], [address], 11/25/2023 08:59:45 11/24/19 24 11/25/2023 LIPID PANEL triglyceride s 72 mg/dL <150 Not Available [facility] - Main Lab (Blood Not Drawn At This Location) Visit [employer] [place], [address], 11/25/2023 08:59:45 11/24/19 24 11/25/2023 LIPID PANEL HDL cholesterol 71 mg/dL >39 Not Available [facility] - Main Lab (Blood Not Drawn At This Location) Visit [employer] [place], [address], 11/25/2023 08:59:45 11/24/19 24 11/25/2023 LIPID PANEL calc LDL chol 67 mg/dL <100 NOTE: CALCU LATED LDL IS BASED ON LANDON N-HOP KINS METHO D WHICH INCLU [facility] ADJUS TABLE TRIGL YCERI DE:VL DL PREETI STERO L RATIO . THIS FACTO R VARIE S BY MEASU RED TRIGL YCERI DE AND NON-H DL PREETI STERO L LINDA NTRAT IONS WITH INCRE ASED CALCU LATED LDL SEEN IN HIGHE R TRIGL YCERI DE OR LOWER NON-H DL SPECI MENS. FOR MORE INFOR GEOVANNA Malik, SEE ALEXEI العلي NT AT http: //[email or web address] [email or web address] [email or web address] -C Not Available [facility] - Main Lab (Blood Not Drawn At This Location) Visit [employer] [place], [address], 11/25/2023 08:59:45 11/24/19 24 11/25/2023 LIPID PANEL risk ratio LDL/HDL 0.94 ratio <3.22 Testi ng Perfo rmed At: [employer] Chantilly Lacei [facility] [employer] [address] [place] [address] [facility] atory Dire tor: Carrington Serrano r [id number] [place]. [id number] Not Available [facility] Main Lab (Blood Not Drawn At This Location) Visit [employer] [place], [address], 11/25/2023 08:59:45 11/24/19 24 11/25/2023 VITAM IN D, 25 OH vitamin D, 25 oh 29 NG/mL see below low EFFEC TIVE 09/20 , MUKUND E NOTE NEW METHO DOLOG Y IS ELECT [facility] INESC ENCE KAIT NG ASSAY . NOTE: 25-HY DROXY VITAM IN D ASSAY INCLU [facility] 25-HY DROXY VITAM IN D2 AND D3. INTER PRETI VE RANGE S PEDIA TRIC (<17 YEARS ) . . . . . . . . . . . NG/ML 20-10 0 ADULT : INSUF FICIE NT . . . . . . . . . . . . . . NG/ML <20 SUBOP TIMAL . . . . . . . . . . . . . . . NG/ML 20-29 OPTIM AL . . . . . . . . . . . . . . . . . NG/ML 30-10 0 Testi ng Perfo rmed At: [facility] [address] [place] [address] Labor atory [employer] tor: Carrington Serrano Numbe r [id number] [place] [id number] Not Available [facility] Main Lab (Blood Not Drawn At This Location) Visit [employer] [place], [address], 11/25/2023 08:59:45 11/24/19 24 11/25/2023 HEMOG LOBIN A1C hemoglobin A1C 5.2 % 4.2-5. 6 Testi ng Perfo rmed At: [employer] Chantilly Lacei [facility] [employer] [employer] [address] [place] [address] Labor [facility] D[employer] tor: Carrington Serranoe r [id number] [place] [id number] Not Available [facility] Main Lab (Blood Not Drawn At This Location) Visit [employer] [place], [address], 11/25/2023 08:59:46 11/24/19 24 11/25/2023 TSH REFLE X TO FREE T4 TSH reflex to free T4 1.170 uIU/m L 0.400- 4.100 Testi ng Perfo rmed At: [employer] [facility] [employer] [address] [place] [address] [employer] D[facility] tor: Carrington Serranoe r [id number] [place] [id number] Not Available [facility] Main Lab (Blood Not Drawn At This Location) Visit [employer] [place], [address], 11/25/2023 08:59:46 11/24/19 24 11/25/2023 CBC W/AUT O DIFF WITH PLATE LETS WBC 5.4 K/uL 3.5-11 .0 Not Available [facility] Main Lab (Blood Not Drawn At This Location) Visit [employer] [place], [address], 11/25/2023 08:59:47 11/24/19 24 11/25/2023 CBC W/AUT O DIFF WITH PLATE LETS RBC 4.46 M/uL 3.80-5 .40 Not Available [facility] Main Lab (Blood Not Drawn At This Location) Visit [employer] [place], [address], 11/25/2023 08:59:47 11/24/19 24 11/25/2023 CBC W/AUT O DIFF WITH PLATE LETS hemoglobin 12.9 g/dL 11.5-1 5.5 Not Available [facility] Main Lab (Blood Not Drawn At This Location) Visit [employer] [place], [address], 11/25/2023 08:59:47 11/24/1911/25/2023 CBC W/AUT O DIFF WITH PLATE LETS hematocrit 39.3 % 34.0-4 5.0 Not Available [facility] Main Lab (Blood Not Drawn At This Location) Visit [employer] [place], [address], 11/25/2023 08:59:47 11/24/19 24 11/25/2023 CBC W/AUT O DIFF WITH PLATE LETS MCV 88.1 fL 80.0-9 9.0 Not Available [facility] Main Lab (Blood Not Drawn At This Location) Visit [employer] [place], [address], 11/25/2023 08:59:47 11/24/1911/25/2023 CBC W/AUT O DIFF WITH PLATE LETS MCH 28.9 pg 25.0-3 3.0 Not Available [facility] Main Lab (Blood Not Drawn At This Location) Visit [employer] [place], [address], 11/25/2023 08:59:47 11/24/19 24 11/25/2023 CBC W/AUT O DIFF WITH PLATE LETS MCHC 32.8 g/dL 31.0-3 6.0 Not Available [facility] Main Lab (Blood Not Drawn At This Location) Visit [employer] [place], [address], 11/25/2023 08:59:47 11/24/19 24 11/25/2023 CBC W/AUT O DIFF WITH PLATE LETS RDW 13.0 % 11.5-1 5.0 Not Available [facility] Main Lab (Blood Not Drawn At This Location) Visit [employer] [place], [address], 11/25/2023 08:59:47 11/24/19 24 11/25/2023 CBC W/AUT O DIFF WITH PLATE LETS neutrophils 68.1 % Not Available [facility] - Main Lab (Blood Not Drawn At This Location) Visit [employer] [place], [address], 11/25/2023 08:59:47 11/24/19 24 11/25/2023 CBC W/AUT O DIFF WITH PLATE LETS lymphocytes 22.4 % Not Available [facility] - Main Lab (Blood Not Drawn At This Location) Visit [employer] [place], [address], 11/25/2023 08:59:47 11/24/19 24 11/25/2023 CBC W/AUT O DIFF WITH PLATE LETS monocytes 7.8 % Not Available [facility] Main Lab (Blood Not Drawn At This Location) Visit [employer] [place], [address], 11/25/2023 08:59:47 11/24/19 24 11/25/2023 CBC W/AUT O DIFF WITH PLATE LETS eosinophils 1.1 % Not Available [facility] - Main Lab (Blood Not Drawn At This Location) Visit [employer] [place], [address], 11/25/2023 08:59:47 11/24/19 24 11/25/2023 CBC W/AUT O DIFF WITH PLATE LETS basophils 0.4 % Not Available [facility] - Main Lab (Blood Not Drawn At This Location) Visit [employer] [place], [address], 11/25/2023 08:59:47 11/24/19 24 11/25/2023 CBC W/AUT O DIFF WITH PLATE LETS immature granulocytes 0.2 % Not Available [facility] - Main Lab (Blood Not Drawn At This Location) Visit [employer] [place], [address], 11/25/2023 08:59:47 11/24/19 24 11/25/2023 CBC W/AUT O DIFF WITH PLATE LETS nucleated RBCs 0.0 /100_ WBC's 0.0 Not Available [facility] - Main Lab (Blood Not Drawn At This Location) Visit [employer] [place], [address], 11/25/2023 08:59:47 11/24/19 24 11/25/2023 CBC W/AUT O DIFF WITH PLATE LETS platelet count 296 K/uL 130-40 0 Not Available [facility] - Main Lab (Blood Not Drawn At This Location) Visit [employer] [place], [address], 11/25/2023 08:59:47 11/24/19 24 11/25/2023 CBC W/AUT O DIFF WITH PLATE LETS absolute neutrophils 3.67 K/uL 1.50-7 .50 Not Available [facility] Main Lab (Blood Not Drawn At This Location) Visit [employer] [place], [address], 11/25/2023 08:59:47 11/24/19 24 11/25/2023 CBC W/AUT O DIFF WITH PLATE LETS absolute lymphocytes 1.21 K/uL 1.00-4 .00 Not Available [facility] - Main Lab (Blood Not Drawn At This Location) Visit [employer] [place], [address], 11/25/2023 08:59:47 11/24/19 24 11/25/2023 CBC W/AUT O DIFF WITH PLATE LETS absolute monocytes 0.42 K/uL 0.20-1 .00 Not Available [facility] - Main Lab (Blood Not Drawn At This Location) Visit [employer] [place], [address], 11/25/2023 08:59:47 11/24/19 24 11/25/2023 CBC W/AUT O DIFF WITH PLATE LETS absolute eosinophils 0.06 K/uL 0.00-0 .50 Not Available [facility] Main Lab (Blood Not Drawn At This Location) Visit [employer] [place], [address], 11/25/2023 08:59:47 11/24/19 24 11/25/2023 CBC W/AUT O DIFF WITH PLATE LETS absolute basophils 0.02 K/uL 0.00-0 .20 Not Available [facility] Main Lab (Blood Not Drawn At This Location) Visit [employer] [place], [address], 11/25/2023 08:59:47 11/24/19 24 11/25/2023 CBC W/AUT O DIFF WITH PLATE LETS abs immature granulocytes 0.01 K/uL 0.00-0 .10 Not Available [facility] Main Lab (Blood Not Drawn At This Location) Visit [employer] [place], [address], 11/25/2023 08:59:47 11/24/19 24 11/25/2023 CBC W/AUT O DIFF WITH PLATE LETS abs nucleated RBCs 0.00 K/uL 0.00-0 .11 Testi ng Perfo rmed At: [facility] [address] [place] [address] Labor atory Dire tor: Carrington Serrano [id number] [place] [id number] Not Available [facility] Main Lab (Blood Not Drawn At This Location) Visit [employer] [place], [address], 11/25/2023 08:59:47 Result Notes None recorded. Problems Name Problem SNOMED Code Status Onset Date Resolution Date Notes Provider Name and Address Organization Details Recorded Time Gestation period, 35 weeks 48065315 Active 2022 praveen salguero [address] [place], [address] , [facility] 3 09:54:42 External hemorrhoid s 60613561 Active 2022 praveen salguero [address] [place], [address] , [facility] 3 09:54:51 Contact dermatitis 52998572 Active 2022 praveen salguero [address] [place], [address] , [facility] 3 09:55:19 Neck pain 68156608 Active 2023 praveen salguero [address] [place], [address] , [facility] 4 15:18:43 Pain of toe of left foot 1317989221098 08 Active 2023 claire salguero-c [address] [place], [address] , [facility] 4 15:26:12 Problem Notes None recorded. Medical Equipment None Reported. Allergies No known drug allergies Medications Name Sig Start Date Stop Date Status Note LastModified by Organization Details LastModified Time azithromyci n 250 mg tablet TAKE 2 TABLETS BY MOUTH FOR 1 DAY THEN TAKE 1 TABLET BY MOUTH DAILY FOR 4 DAYS active Not Available Not Available No t Available ibuprofen 800 mg tablet Take 1 tablet 3 times a day by oral route as needed. 11/23 completed PRN for pain Not Available Not Available Not Available docusate calcium 240 mg capsule Take 1 capsule every day by oral route as needed. active Not Available Not Available No t Available tramadol 50 mg tablet TAKE 1 TABLET BY MOUTH EVERY 6 HOURS FOR 3 DAYS NEEDED FOR PAIN 11/23 completed Not Available Not Available Not Available ciprofloxac in 0.3 % eye drops INSTILL 2 DROPS IN LEFT EYE FOUR TIMES DAILY FOR 5 DAYS active Not Available Not Available No t Available cephalexin 500 mg capsule TAKE 1 CAPSULE BY MOUTH TWICE DAILY FOR 10 DAYS active Not Available Not Available No t Available estradiol 0.01% (0.1 mg/gram) vaginal cream APPLY 1 APPLICATI ON VAGINALLY THREE TIMES A WEEK active Not Available Not Available No t Available moxifloxaci n 0.5 % eye drops INSTILL 1 DROP INTO AFFECTED EYE 3 TIMES A DAY FOR 7 DAYS active Not Available Not Available No t Available 11/23 completed Not Available Not Available Not Available lidocaine 5 % topical ointment APPLY TO THE AFFECTED AREA FIVE TIMES DAILY FOR 14 DAYS FOR SEVERE PAIN 11/23 completed Not Available Not Available Not Available tramadol 100 mg tablet TAKE 1 TABLET BY MOUTH EVERY 6 HOURS FOR 3 DAYS 11/23 completed Not Available Not Available Not Available Vitals Date Recorded Body height Body mass index (BMI) Body weight Heart rate Systolic And Diastolic Provider Name and Address Organization Details Last Updated DateTime 11/24/2023 162.56 cm 22.9 kg/m2 38587.22 g 81 /min 102/69 mm[Hg] Gemma Walters [facility] 11/24/2023 15:09:09 Date Recorded Body weight Body mass index (BMI) Body height Heart rate Systolic And Diastolic Provider Name and Address Organization Details Last Updated DateTime 07/28/2023 69622.51 g 26.4 kg/m2 162.56 cm 88 /min 100/67 mm[Hg] Gemma Walters [facility] 07/28/2023 09:31:42 Social History Question Answer Notes LastModified by Organizat ion Details LastModified Time Tobacco Smoking Status Never Smoker Gemma parikh [facility] 07/28/2023 09:25:07 Do You Have An Advance Directive? No Information not available 07/28/2023 Is Your Home Air Conditioned? Yes Information not available 07/28/2023 Are You Blind Or Do You Have Difficulty Seeing? No Information not available 07/28/2023 Are You Deaf Or Do You Have Serious Difficulty Hearing? No Information not available 07/28/2023 What Type Of Diet Are You Following? REGULAR Information not available 07/28/2023 Which Of Your Hands Is Dominant? 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 No Information not available 07/28/2023 What Is Your Relationship Status? Information not available 07/28/2023 Are You Sexually Active? Yes Information not available 07/28/2023 Do You Have Smoke And Carbon Monoxide Detectors In Your Home? Yes Information not available 07/28/2023 Has Tobacco Cessation Counseling Been Provided? No Information not available 07/28/2023 Have You Recently Traveled Abroad? No Information not available 07/28/2023 Sex: Unknown Functional Status Question Answer Note LastModified by Organizat ion Details LastModified Time Do you use any illicit or recreational drugs? No Information not available 07/28/2023 Do you or have you ever used any other forms of tobacco or nicotine? No Information not available 07/28/2023 What is your level of alcohol consumption? None Information not available 07/28/2023 Are you currently employed? Yes Information not available 07/28/2023 What is your status? Information no t available 07/28/2023 Are you able to walk? YESWOREST Information not available 07/28/2023 Do you have difficulty doing errands alone? No Information not available 07/28/2023 Are you able to care for yourself independently? 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 No Information not available 07/28/2023 Mental Status Question Answer Note LastModified by Organization D etails LastModified Time Do you have difficulty concentrating, remembering or making decisions? No Information no t available 07/28/2023 Family History Nothing Reported. Medical History No medical history recorded. Gynecological History Statement/Question Response Date of LMP 11/10/2022 Obstetrics History GPAL:G 1 P 1 0 0 1 Type Value Full Term 1 Living 1 Total 1 Past Encounters Encounter ID Performer Location Encounter Start Date Encounter Closed Date Diagnosis/Indication Diagnosis SNOMED-CT Code Diagnosis ICD10 Code Diagnosis Note [id number] Alphonse Banegas III, MD [facility] Office [address] [place] [address] 07/28/2023 09:19:10 07/28/2023 11:06:12 Gestation period, 35 weeks 21429129 Z3A.35 (35 weeks): - Patient is currently under the care of OB Dr. Woods. - Plan: Continue care with the OB. Monitor for any complicati ons or changes in the patient's condition. follow-up: - Plan: Schedule a routine patient checkup at her convenien e after delivery. Perform routine labs, including cholestero l and hemoglobin A1c, to ensure overall health. External hemorrhoids [id number] K64.4 Hemorrhoid s: - Patient has a history of childhood hemorrhoid s and constipati on, currently experienci ng external hemorrhoid s without significan t pain. - Plan: Refer the patient to Dr. George Ivory for hemorrhoid removal consultati on. Discuss the possibilit y of scheduling the procedure during maternity leave. Educate the patient on the importance of maintainin g a healthy diet and regular bowel movements to prevent recurrence . Contact dermatitis [id number] 004 L25.9 Chafing and rash on thighs:- Patient reports chafing and a mildly itching rash on the back of her thighs.- Plan: Recommend the patient to apply hydrocorti sone cream to the affected area and monitor for improvemen t. Keep clean and dry. Use unscented detergents , soaps, lotions. If no improvemen t or worsening, follow up, and consider alternativ e treatment options and ensure safety. Also consider anti-chafi ng balm [id number] Alphonse Banegas III, MD [facility] Office [address] [facility] [address] 11/24/2023 14:54:26 11/24/2023 15:48:10 Adult health examination [id number] Z00.00 Screening recommenda tions include: pap smearImmun izations recommenda tions include: none/UTDRo utine labs checked today include CBC, CMP, TSH, VItamin D, lipid panel, hemoglobin [id number] patient to follow up in 1 year or sooner if needed. COUNSELING was provided today regarding the following topics: healthy eating habits, regular exercise, tobacco avoidance, limitation of alcohol intake, avoiding alcohol when driving, boating, etc. , illicit drug use, use of seat belts, use of motorcycle or bicycle helmets, firearm safety, and CPR training for household members Routine Lab Work- Assessment : The patient has not had recent lab work. Routine lab work is proposed to assess overall health, including blood count, anemia, infections , thyroid function, vitamin D levels, kidney and liver function, electrolyt es, hemoglobin A1c, and cholestero l. - Plan:a. Proceed with the recommende d lab work to ensure comprehens kip health assessment . Flu Vaccine Inquiry- Assessment : The patient inquired about receiving a flu vaccine. The clinic has run out of flu vaccines and did not reorder, anticipati ng the end of the flu season. - Plan:a. Advise the patient to seek a flu vaccine at a local pharmacy if available, as the clinic currently does not have any in stock. Inform the patient that the clinic typically receives flu vaccine shipments in early April and will announce availabili ty for the next season. 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 The pain is attributed to past strain and is likely exacerbate d by the patient's profession al activities . - Plan:a. Refer the patient to [facility] for physical therapy, with the initial diagnosis of chronic shoulder and neck pain to ensure insurance coverage. The referral process is underway. b. Recommend non-prescr iption interventi ons including anti-infla mmatories like ibuprofen, and if ineffectiv e, consider prescripti on options such as meloxicam or Celebrex. The patient wishes to avoid medication if possible. Also suggest proper body mechanics, massages, heating pads, ice packs, and gentle stretching . Long-term drug therapy [id number] Z79.899 Additional diagnosis detail: group home use of drug Pain of to e of left foot [id number] 96736 M79.672 Persistent pain following nail trauma- Assessment : The patient presents with a month and a half history of pain in the left great toe, following by trauma from her inadverten tly stepping on the toe, and characteri zed by persistent discharge and pain despite being treated with antibiotic s. Despite attempts at self-manag ement and a visit to the ER, where it was suggested to use a kit for trimming, the condition has not improved. - Plan:a. Refer the patient to Dr. Tiburcio Kennedy, a warpman , for further evaluation and potential nail removal if necessary. The referral process has been initiated. Health Concerns Section Related Observation LastModified by Organization Detai ls LastModified Time None Recorded Concern Status LastModified by Organization Details LastModified Time None Recorded Advance Directives Directive N: Payers Insurance Date Sequence Insurance Name Policy Number Policy Lyle Covered Member ID Lyle Member ID Guarantor Name 11/24/2023 1 [place] [id number] Yuriy Vences [id number] Yuriy Vences 08/23/2024 1 [employer] [id number] Yuriy Vences [id number] Yuriy Vences Notes Date Note Type Note Provider Name and Address Organization Details Recorded Time 07/28/2023 text/html The patient presents at 35 weeks with a chief complaint of external hemorrhoids. She reports a history of constipation and hemorrhoids since childhood, which she attributes to a poor diet consisting of fried food and carbohydrates. The patient states that she has made significant dietary changes since college, but the external hemorrhoids have persisted.She describes the hemorrhoids as non-painful at the moment, external grape-like clusters. The patient is interested in hemorrhoid removal and hopes to have the procedure done during her maternity leave. She expresses concern about the recovery time and the possibility of recurrence.Additiona llpierre, the patient reports experiencing chafing on the back of her thighs, resulting in a dark, rash-like appearance. She describes the affected area as mildly itchy. richard kenny, armored car guard-c [address] [place], [address], [facility] - [facility] 07/28/2023 10:09:27 11/24/2023 text/html The patient presents for a routine check up. She has a chief complaint regarding a persistent issue with their left big toe, which has been problematic for approximately a month and a half. The problem initially started after her inadvertendtly stepped on her toe. The patient describes experiencing pus discharge from the corner of the nail when pressed on. Despite visiting the ER for this issue, where the staff briefly examined the toe and suggested treating it as an ingrown toenail, the patient reports no improvement over the past two weeks. It is noted that the patient was treated with antibiotics for this condition. 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 The patient is currently and has encountered challenges with their refusing to take a bottle. Furthermore, the patient has a history of hemorrhoid removal, which occurred during their maternity leave. The patient is adjusting well to being a new mother and has no concerns for post depression. She has adequate support at home. -Other concerns: L big toe(over a month- red,pus, painful when weight bearing)-specialists involved in care: Dr. Ivory (hemmorhoidectomy)-s pecial equipment/DME needed: none Vision screening/Retinavue (date/location): UTDDental Visits: annuallySmoking: never smokedAlcohol: none Colon cancer screening (age 45-75)-Colonoscopy/C ologuard (date/location/resul ts) :N/A IF SMOKING HISTORY:*one-time AAA screening (men 65-75 who have ever smoked N/A*annual lung cancer screening(50-80 depending on smoking history: N/A FEMALES:Last menstrual period: recently gave , currently *breast cancer screening/mammo (women age 40-74)(date/location /results):N/A*DEXA (women >65 or increased risk factors (date/location/resul ts: N/A*cervical cancer screening/pap (age 21-65) (date/location/resul ts: NUTD. IMMUNIZATIONS (date given):*Tdap (o70pedos): UTD*Shingles (Shingrix-2 dose series age >50): N/A*Hep B: UTD*Flu (annually): NUTD*Covid(booster if >65): N/A*Pneumonia (prevnar 20 if smoker/DM/lung disease/immunocompro mised/age >65): N/A*RSV (>65): N/A*Gardasil (high risk): N/A richard kenny, armored car guard-c [address], [place], [address], [facility] 11/26/2023 15:11:17 OBGyn Episode No OBEpisode recorded.
--- OUTSIDE RECORDS SUMMARY | 2025-04-06 11:24 | XMS_ITS | Patient Health Record ---
Author Organization [facility] Address [address] [place] [phone] Care Team Providers Care Front Office Spec Name Role Phone TEJ CAMACHO Primary Care Provider Horacio Camacho Unavailable [phone] Allergies No Known Allergies Results Component Value Reference Range Notes Testosterone, Serum Reviewed date:10/02/2024 08:15:08 AM Interpretation: Performing Lab:[facility], [address] [facility], Phone - [phone], Director - Sharonda Notes/Report: Testosterone 34 13-71 ng/dL TSH Reviewed date:10/02/2024 08:15:03 AM Interpretation: Performing Lab:[facility], [address] [facility], Phone - [phone], Director - Sharonda Notes/Report: TSH 1.240 0.450-4.500 uIU/mL Estradiol Reviewed date:10/02/2024 08:14:53 AM Interpretation: Performing Lab:[facility], [address] [facility], Phone - [phone], Director - Sharonda Notes/Report: Estradiol 36.9 Adult Female Range Follicular phase 12.5 - 166.0 Ovulation phase 85.8 - 498.0 Luteal phase 43.8 - 211.0 Postmenopausal <6.0 - 54.7 1st trimester 215.0 - >4300.0 Lawrence ECLIA methodology CBC With Differential/Platel et Reviewed date:10/03/2024 08:03:46 AM Interpretation: Performing Lab:[facility] [place], [address] [facility], Phone - [phone], Director - Sharonda Notes/Report: WBC 4.6 3.4-10.8 x10E3/uL RBC 4.69 3.77-5.28 x10E6/uL Hemoglobin 13.5 11.1-15.9 g/dL Hematocrit 40.5 34.0-46.6 % MCV 86 79-97 fL MCH 28.8 26.6-33.0 pg MCHC 33.3 31.5-35.7 g/dL RDW 14.1 11.7-15.4 % Platelets 263 150-450 x10E3/uL Neutrophils 54 Not Estab. % Lymphs 34 Not Estab. % Monocytes 10 Not Estab. % Eos 1 Not Estab. % Basos 1 Not Estab. % Neutrophils (Absolute) 2.5 1.4-7.0 x10E3/uL Lymphs (Absolute) 1.6 0.7-3.1 x10E3/uL Monocytes(Absolute) 0.5 0.1-0.9 x10E3/uL Eos (Absolute) 0.1 0.0-0.4 x10E3/uL Baso (Absolute) 0.0 0.0-0.2 x10E3/uL Immature Granulocytes 0 Not Estab. % Immature Grans (Abs) 0.0 0.0-0.1 x10E3/uL Rheumatoid Arthritis Factor Reviewed date:10/02/2024 08:14:43 AM Interpretation: Performing Lab:[facility] [place] [facility], Phone - [phone], Director - Sharonda Notes/Report: Rheumatoid Factor (RF) <10.0 <14.0 IU/mL FSH and LH Reviewed date:10/02/2024 08:14:37 AM Interpretation: Performing Lab:[facility] [place] [facility], Phone - [phone], Director - Sharonda Notes/Report: LH 10.3 Adult Female Range Follicular phase 2.4 - 12.6 Ovulation phase 14.0 - 95.6 Luteal phase 1.0 - 11.4 Postmenopausal 7.7 - 58.5 FSH 7.5 Adult Female Range Follicular phase 3.5 - 12.5 Ovulation phase 4.7 - 21.5 Luteal phase 1.7 - 7.7 Postmenopausal 25.8 - 134.8 CCP Antibodies IgG/IgA Reviewed date:10/02/2024 08:14:21 AM Interpretation: Performing Lab:[facility] [place], [address], [place], Phone - [phone], Director - Ellis Notes/Report: Anti-CCP Ab, IgG/IgA 4 0-19 units Negative <20 Weak positive 20 - 39 Moderate positive 40 - 59 Strong positive >59 OTILIA w/Reflex Reviewed date:10/02/2024 08:14:14 AM Interpretation: Performing Lab:[facility] [place], [address] [facility], Phone - [phone], Director - Sharonda Notes/Report: OTILIA Direct Negative Negative Lipid Panel Reviewed date:10/02/2024 08:13:53 AM Interpretation: Performing Lab:[facility] [place], [facility], Phone - [phone], Director - Sharonda Notes/Report: Cholesterol, Total 154 100-199 mg/dL Triglycerides 50 0-149 mg/dL HDL Cholesterol 72 >39 mg/dL VLDL Cholesterol Alcon 11 5-40 mg/dL LDL Chol Calc (NIH) 71 0-99 mg/dL Comp. Metabolic Panel (14) Reviewed date:10/02/2024 08:13:41 AM Interpretation: Performing Lab:[facility] [place] [facility], Phone - [phone], Director - Sharonda Notes/Report: Glucose 86 70-99 mg/dL BUN 14 6-20 mg/dL Creatinine 0.68 0.57-1.00 mg/dL eGFR 123 >59 mL/min/1.73 BUN/Creatinine Ratio 21 9-23 Sodium 141 134-144 mmol/L Potassium 4.3 3.5-5.2 mmol/L Chloride 103 96-106 mmol/L Carbon Dioxide, Total 26 20-29 mmol/L Calcium 9.5 8.7-10.2 mg/dL Protein, Total 7.1 6.0-8.5 g/dL Albumin 4.3 4.0-5.0 g/dL Globulin, Total 2.8 1.5-4.5 g/dL Bilirubin, Total 1.3 0.0-1.2 mg/dL Alkaline Phosphatase 77 44-121 IU/L AST (SGOT) 13 0-40 IU/L ALT (SGPT) 11 0-32 IU/L Reason For Referral Reason Consultation---Sent through eclinicals Diagnosis 1 De Quervain's tenosy novitis, right (M65.4) Referral Organization [facility] Referring Provider First Name Horacio Referring Provider Last Name Camacho [facility]erred Provider Arturo Romero Referred Provider Specialty Orthopedic S urgery Referral Priority Routine Medications Medication SIG (Take, Route, Fr equency, Duration) Notes Start Date End Date Status Meloxicam 15 MG 1 tablet as needed O rally Once a day; Duration: 30 days 10/02/2024 Active Problems Problem Type SNOMED Code ICD Code Onset Dates Problem Status W/U Status Risk Notes Problem Amenorrhea (37950625) Amenorrhea (N91.2) Active confirmed Vital Signs Heart Rate 78 /min 10/02/2024 Oximetry 98 % 10/02/2024 Blood pressure diastolic 61 mm Hg 10/02/2024 Height 64 in 10/02/2024 Blood pressure systolic 94 mm Hg 10/02/2024 Weight 128.6 lbs 10/02/2024 BMI 22.07 kg/m2 10/02/2024 Encounters Encounter Location Date Provider Diagnosis [facility] [address] [facility] [place] [address] 09/19/2024 Horacio Camacho Amenorrhea N91.2 ; D e Quervain's tenosynovitis M65.4 ; Mother currently breast-feeding Z39.1 ; High risk medication use Z79.899 and Family history of rheumatoid arthritis Z82.61 [facility] [address] [place] [address] 10/02/2024 Horacio Camacho Encounter to discuss test results Z71.2 and De Quervain's tenosynovitis, right M65.4 Assessments Encounter Date Diagnosis (ICD Code) Assessment Notes Treatment Notes Treatment Clinical Notes Section Notes 09/19/2024 Amenorrhea (ICD-10 - N91.2) - Corie is currently experiencing amenorrhea. She is approximately 13 months post- and is currently . - Menstrual cycle will likely return once she completely stops , which she plans to do once her son is approximately 18 months old. - Will check hormone related labs 09/19/2024 De Quervain's tenosynovitis (ICD-10 - M65.4) - Likely diagnosis based on her presentation and her exam - Recommended that she continue her NSAID PRN for pain/discomfort - May consider steroid injection in the future (offered today but she declined) - Also encouraged her to consider wearing an OTC thumb spica splint to help support the MCP joint, and limit any activities that tend to make the pain worse (use her left arm to hold and picker / packer her son, use left arm at work whenever possible, etc.) 10/02/2024 De Quervain's tenosynovitis, right (ICD-10 - M65.4) - Rana continues to c/o pain, gradually worsening. - Encouraged her to consider wearing a thumb spica splint, she got one on my recommendation but has not worn it consistently - Will switch from naproxen to meloxicam 15 mg PO QD PRN, she reports decent pain relief with the naproxen but often forgets to take a second dose. NSAID precautions given. - Offered her a prescription for Flexeril to have on hand PRN, she declined as she doesn't want to be groggy if her child needs her during the night - Discussed limiting her activities with her right hand, and trying to use her left hand more, especially with the activities that tend to provoke her pain. 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 Reminded her to try to favor her left hand as much as possible. - Patient is requesting a referral to ortho for further management, will send referral to Dr. Romero at [facility]. - Follow-up PRN 10/02/2024 Encounter to discuss test results (ICD-10 - Z71.2) - All recent labs reviewed in detail with patient. - All labs are essentially unremarkable. 09/19/2024 Mother currently breast-feeding (ICD-10 - Z39.1) - Has been successfully for 13 months now, and plans to continue to breastfeed until her son is at least 18 months old. 09/19/2024 High risk medication use (ICD-10 - Z79.899) - Takes an NSAID on a routine basis 09/19/2024 Family history of rheumatoid arthritis (ICD-10 - Z82.61) - Patient voices family h/o RA on her maternal side. 09/19/2024 Other Patient education and precautions given. All questions and concerns addressed. Documentation scribed in the presence of Horacio Camacho M.D. by Giovanna Amezquita MA. 10/02/2024 Other Patient education and precautions given. All questions and concerns addressed. Documentation scribed in the presence of Horacio Camacho M.D. by Giovanna Amezquita MA. Plan Of Treatment No Information Insurance Providers Payer Name Payer Address Payer Phone Subscriber Number Group Number Insured Name Patient Relationship to Insured Coverage Start Date Coverage End Date [address] [place] [id number] Yuriy Vences Self - patient is the insured Medical (General) History Surgical History Surgery Date(Month/Year) Hemorrhoid Removal 10/2023
[2025-04-06 11:30] VITALS: BP 101/59; PULSE 90; RESP 17; TEMP 36; O2SAT 100
--- NOTE | 2025-04-06 11:30 | ED.EYEPROB ---
HPI - Eye Problem General Chief complaint: Eye Problems Stated complaint: eye infection/eye redness Time Seen by Provider: 04/06/25 11:25 Source: patient Mode of arrival: ambulatory Limitations: no limitations History of Present Illness HPI Narrative: patient is a 24-year-old female presents with right eye redness, irritation and pain. Reports some scratch her in the eye. Reports photosensitivity and eye watering. denies any vision changes. Reports pain is in the lateral bottom. Related Data Allergies Allergy/AdvReac Type Severity Reaction Status Date / Time No Known Allergies Allergy Verified 04/06/25 11:22 Review of Systems Review of Systems: All systems reviewed & are unremarkable except as noted in HPI and below Constitutional: Constitutional: Denies body ache(s), Denies fever(s), Denies headache(s), Denies malaise and Denies weakness Eyes: Eyes: Denies blurry vision, Denies eye discharge, Reports irritation, Denies itchy eyes, Denies loss of vision and Reports eye pain ENT: Denies otalgia, Denies headache(s), Denies nasal discharge, Denies sinus pain and Denies sore throat Cardiovascular: Cardiovascular: Denies chest pain, Denies irregular heart rhythm and Denies dyspnea Respiratory: Respiratory: Denies dyspnea Gastrointestinal: Gastrointestinal: Denies abdominal pain, Denies diarrhea, Denies nausea and Denies vomiting Musculoskeletal: Musculoskeletal: Denies back pain, Denies myalgias and Denies arthralgias Integumentary/Breasts: Skin/Breast: Denies pruritus and Denies rash Neurologic: Denies headache(s), Denies loss of vision and Denies weakness Psychiatric: Psychiatric: Reports no additional psychiatric complaints Allergic/Immunologic: Allergic/Immunologic: Reports itchy eyes PMFSH Social History Social History Gender identity (if verbalized by the patient): Female Comments At time of signature, agree with nursing past medical, surgical, social and family history. There is no relevant family history pertinent to the presenting complaint. Exam Const: General: cooperative, healthy appearing, comfortable, no acute distress and well nourished Nutritional Appearance: well nourished Orientation/consciousness: patient oriented x3 Limitations: no limitations HENMT: Head: normal to inspection, normocephalic and atraumatic Ears: external ears normal Face/Nose/Sinus: Normal external nose present, normal facial exam and face symmetric Face and sinus: normal facial exam and face symmetric Mouth: Yes lip normal Eyes: General: appearance normal, both eyes and all related structures Visual Stacy: normal visual stacy by confrontation Alignment and Position: alignment normal and position normal Periorbital: periorbital findings normal Eyelids: eyelids normal Conjunctivae: conjunctivae normal Sclera: sclerae normal Cornea: corneas abnormal on the right fluorescein used and abrasion curved and at the following clock position (7); with no foreign body noted and fluorescein used Pupils: Equal, round and reactive pupils present EOM: EOMs intact bilaterally Direct Ophthalmoscopy: photophobia Other: No hyphema, no foreign body under the lids. Neck: Neck: normal visual inspection, full ROM, no lymphadenopathy and no meningeal signs Chest: Chest palpation & inspection: normal inspection of the chest Resp: Effort & Inspection: normal respiratory effort and able to speak in complete sentences Auscultation: clear to auscultation bilaterally Cardio: Rate: regular rate Rhythm: regular rhythm Heart sounds: S1 normal heart sound present and S2 normal heart sound present GI: Inspection: normal to inspection Skin: General skin exam: normal color and no rashes or lesions noted Neuro: General: patient oriented x3, moves all extremities and no meningeal signs Cranial nerves: Yes Equal, round and reactive pupils present Speech: normal speech Gait exam (Neuro): Normal gait present Extrem: General: normal to inspection, full ROM and no edema Psych: Appearance: grossly normal and well kempt Mental Status: mental status grossly normal Speech and movement: Normal speech and movement present Affect: normal affect Attitude: cooperative Thought process: Normal thought process present Course Course Emergency Course: Patient is aware of diagnosis, understands and agrees to treatment plan. Anticipatory guidance given. Patient agrees to follow-up as directed and is aware of reasons to seek care at the emergency department. Portions of this record may have been created with voice recognition software Level of Care: Express Care Visit Vital Signs Vital signs: Reviewed MDM - Eye Problem MDM Narrative Medical decision making narrative: Exam findings show corneal abrasion; patient is non-toxic appearing and is in no distress.? Patient is appropriate for outpatient treatment and follow-up Discharge instructions reviewed with patient and family, as well as provided in writing per nursing staff. The instructions also include specific and strict return/GO TO THE ER as well as f/u information. All questions have been answered, and the patient deny any further questions with discharge and discharge plan. Consideration of the following conditions may be warranted for the presenting problem, they are not final diagnoses: Bacterial conjunctivitis, allergic conjunctivitis, viral conjunctivitis, foreign body, blepharitis, chalazion, hordeolum, corneal abrasion. Medical Records Attestation: I reviewed the patient's medical records. Discharge Plan Discharge Clinical Impression: Corneal abrasion Qualifiers: Encounter type: initial encounter Laterality: right Qualified Code(s): S05.01XA - Injury of conjunctiva and corneal abrasion without foreign body, right eye, initial encounter Patient Disposition: Home Condition: Stable Instructions: Corneal Abrasion (ED) Additional Instructions: Corneal abrasions will heal in 1-2 days. Keep your eye shut and wearing sunglasses or staying in low light to avoid light sensitivity. Do not touch or rub your eye or use a fabric patch (pirate's patch) You may take Tylenol or ibuprofen for pain Follow-up with PCP or boat diesel motor mechanic if condition is not improving in 2-3days. Patient Language: Japanese Prescriptions: New ofloxacin 0.3 % drops 2 drp RIGHT EYE Q6H Qty: 5 1RF Rx Instructions: 2 drps into right eye four times a day Follow-up/Referrals: Osmany Leone MD [Physician] - 3 Days Time of Disposition: 11:51
== END 2025-04-06 11:52 | disposition home or self-care (01) ==
PROVIDERS: Emergency Provider Nurse Practitioner Family; Referring Provider Emergency Medicine
DX: S05.01XA Injury of conjunctiva and corneal abrasion without foreign body, right eye, initial encounter (principal); X58.XXXA Exposure to other specified factors, initial encounter
CPT/HCPCS: 99213; A9270; G0463